=== PATIENT | female | born 1965 | race Two or more races ===

== ENCOUNTER 2016-07-03 16:23 | Emergency (ER) | payer MEDICAID, OTHER ==
[~2016-07-03] VITALS: Ht 144.8 cm; Wt 62.4 kg
[2016-07-03 16:37] VITALS: BP 119/81
[2016-07-03] MEDS ORDERED: LISI-283 PO (18:52)
[2016-07-03] MEDS ORDERED: CALC667C PO (18:53)
[2016-07-03] MEDS ORDERED: ATOR10TA52 PO (18:53)
[2016-07-03] MEDS ORDERED: METF-314 PO (18:55)
[2016-07-03] MEDS ORDERED: SITA100T7 PO (18:55)
[2016-07-03] MEDS ORDERED: IBUP600T27 PO (18:55)
[2016-07-03] MEDS ORDERED: ASPI81TA27 PO (18:55)
[2016-07-03] MEDS ORDERED: KETOROLAC TROMETH 60MG/2ML VIAL IM ONE (19:45)
[2016-07-03] MEDS ORDERED: ONDANSETRON ODT 4 MG TAB PO ONE (19:45)
== END 2016-07-03 20:46 | disposition home or self-care (01) ==
LOC: ER 16:30
DX: E86.0 Dehydration (principal); G43.909 Migraine, unspecified, not intractable, without status migrainosus; E11.65 Type 2 diabetes mellitus with hyperglycemia; R81 Glycosuria; R11.2 Nausea with vomiting, unspecified; Z91.14 Patient's other noncompliance with medication regimen
CPT/HCPCS: 96372; 99283; J1885; Q0162

== ENCOUNTER 2020-10-22 13:45 | Inpatient (IN) | payer MEDICAID ==
[~2020-10-22] VITALS: Ht 144.8 cm; Wt 718.5 kg
[~2020-10-22 13:45] MED LIST: ASPI-543 PO; ATOR10TA52 PO; CALC667C PO; IBUP600T27 PO; LISI-283 PO; METF-371 PO; SITA100T7 PO
[2020-10-22 14:39] LABS: Basophils # (auto) 0 10 ^3/uL (0-0.2); Basophils % (auto) 0.5 % (0.0-2.0); Eosinophils # (auto) 0.2 10 ^3/uL (0-0.8); Eosinophils % (auto) 1.9 % (0.0-7.0); Hematocrit 45.8 % (36.0-46.0); Hemoglobin 15.2 g/dL (12.2-16.2); Lymphocytes # (auto) 2.6 10 ^3/uL (0.4-5.4); Lymphocytes % (auto) 33.2 % (10.0-50.0); Mean Corpuscular Hgb Conc. 33.2 g/dL (32.0-36.0); Mean Corpuscular Volume 84.2 fL (80.0-100.0); Monocytes # (auto) 0.5 10 ^3/uL (0-1.3); Monocytes % (auto) 6.2 % (0.0-12.0); Neutrophils # (auto) 4.6 10 ^3/uL (1.6-8.6); Neutrophils % (auto) 58.2 % (37.0-80.0); Nucleated Red Blood Cells % 0.1 %; Platelet Count (auto) 265 10^3/uL (140-450); Red Blood Cells 5.43 10^6/uL (4.0-5.20); Red Cell Distribution Width 14.4 % (11.8-14.3); White Blood Cell 7.9 10^3/uL (4.4-10.8)
[2020-10-22 14:55] LABS: Albumin 3.8 g/dL (3.4-5.0); Anion Gap 7 (5-15); Blood Urea Nitrogen 11 mg/dL (7-18); Calcium 9.5 mg/dL (8.5-10.1); Carbon Dioxide 27 mmol/L (21-32); Chloride 102 mmol/L (98-107); Glucose 359 mg/dL (74-106); Potassium 3.9 mmol/L (3.5-5.1); Sodium 136 mmol/L (136-145)
[2020-10-22 15:00] LABS: Alanine Aminotransferase 22 U/L (13-56); Alkaline Phosphatase 176 U/L (45-117); Aspartate Aminotransferase 16 U/L (15-37); BUN/Creatinine Ratio 17.5; Bilirubin, Total 0.5 mg/dL (0.2-1.0); GFR African American 125 mL/min; GFR Non-African American 104 mL/min; Total Protein 8.5 g/dL (6.4-8.2)
[2020-10-22 15:26] LABS: Urine Bacteria NONE SEEN /hpf (None Seen); Urine Blood Negative /uL (Negative); Urine Mucus FEW (None Seen); Urine Specific Gravity 1.031 (1.001-1.035); Urine WBC 257 /hpf (0 - 5); Urine WBC Clumps PRESENT /hpf (None Seen)
[2020-10-22] MEDS ORDERED: cefTRIAXone 1GM/50ML D5W 50 ML IV ONE (16:45)
[2020-10-22] MEDS ORDERED: METOPROLOL TARTRATE 1MG/1ML-5ML VIAL IV ONE ×2 (17:56→18:00)
[2020-10-22] MEDS ORDERED: IOHEXOL 350 MG/ML 100ML IJ ONE (18:07)
[2020-10-22] MEDS ORDERED: LORazepam 0.5 MG TAB PO PRN (20:00)
[2020-10-22] MEDS ORDERED: MORPHINE SULF INJ 2 MG/ML SYRINGE 1ML IV PRN ×2 (20:00)
[2020-10-22] MEDS ORDERED: ONDANSETRON HCL 4 MG/2 ML VIAL IV PRN (20:00)
[2020-10-22] MEDS ORDERED: ACETAMINOPHEN 500 MG TAB PO PRN (20:00)
[2020-10-22] MEDS ORDERED: NITROGLYCERIN 0.4 MG SL TAB SL PRN (20:00)
[2020-10-22] MEDS ORDERED: LABETALOL HCL 5 MG/ML 4ML SYRINGE IV PRN (20:00)
[2020-10-22] MEDS ORDERED: SODIUM CHLORIDE 0.9% 2,000 ML IV ONE (20:00)
[2020-10-22] MEDS ORDERED: LABETALOL HCL 5 MG/ML 4ML SYRINGE IV ONE (20:00)
[2020-10-22] MEDS ORDERED: DEXTROSE (50%) 50ML SYRG IV PRN (20:00)
[2020-10-22] MEDS ORDERED: DOCUSATE CALCIUM 240 MG CAP PO PRN (20:00)
[2020-10-22] MEDS: InsuLIN REG 1unit/0.01ml Soln (100units/ml) SC SCH ×2 (20:20→23:36)
[2020-10-22] MEDS: ACCU-CHEK COMFORT CURVE STRIP VI SCH ×2 (20:21→23:36)
[2020-10-22] MEDS ORDERED: dilTIAZem 25 MG/5 ML VIAL IV ONE (21:00)
[2020-10-22] MEDS ORDERED: INSULIN LANTUS (GLARGINE) 1 /0.01ml (100units/ml) SC SCH (22:00)
[2020-10-22] MEDS: SODIUM CHLORIDE 0.9% 1,000 ML IV SCH (23:36)
[2020-10-23 01:35] VITALS: BP 97/65
[2020-10-23] MEDS: ACCU-CHEK COMFORT CURVE STRIP VI SCH ×3 (03:44→12:23)
[2020-10-23] MEDS: InsuLIN REG 1unit/0.01ml Soln (100units/ml) SC SCH ×3 (03:44→12:23)
[2020-10-23 05:00] VITALS: BP 105/57
[2020-10-23] MEDS: SODIUM CHLORIDE 0.9% 1,000 ML IV SCH (05:52)
[2020-10-23 06:01] LABS: Basophils # (auto) 0 10 ^3/uL (0-0.2); Basophils % (auto) 0.4 % (0.0-2.0); Eosinophils # (auto) 0.1 10 ^3/uL (0-0.8); Hematocrit 39.2 % (36.0-46.0); Hemoglobin 13.5 g/dL (12.2-16.2); Lymphocytes # (auto) 2.4 10 ^3/uL (0.4-5.4); Lymphocytes % (auto) 26.4 % (10.0-50.0); Mean Corpuscular Hemoglobin 28.7 pg (28.0-32.0); Mean Corpuscular Hgb Conc. 34.5 g/dL (32.0-36.0); Mean Corpuscular Volume 83.3 fL (80.0-100.0); Monocytes # (auto) 0.6 10 ^3/uL (0-1.3); Monocytes % (auto) 6.2 % (0.0-12.0); Neutrophils # (auto) 6.1 10 ^3/uL (1.6-8.6); Platelet Count (auto) 226 10^3/uL (140-450); Red Blood Cells 4.71 10^6/uL (4.0-5.20); Red Cell Distribution Width 14.2 % (11.8-14.3); White Blood Cell 9.3 10^3/uL (4.4-10.8)
[2020-10-23 06:22] LABS: Potassium 3.5 mmol/L (3.5-5.1)
[2020-10-23 06:34] LABS: BUN/Creatinine Ratio 24.5; Bilirubin, Total 0.5 mg/dL (0.2-1.0); Calcium 8.4 mg/dL (8.5-10.1); Total Protein 6.7 g/dL (6.4-8.2)
[2020-10-23 08:15] VITALS: BP 129/72
[2020-10-23 09:20] VITALS: BP 129/72
[2020-10-23] MEDS ORDERED: PANTOPRAZOLE 40 MG TAB PO SCH (10:00)
[2020-10-23] MEDS ORDERED: ENOXAPARIN SOD 40 MG/0.4 ML SYRINGE SC SCH (10:00)
[2020-10-23 12:18] VITALS: BP 156/97
[2020-10-23 12:52] VITALS: BP 156/97
[2020-10-23] MEDS ORDERED: cefTRIAXone 1GM/50ML D5W 50 ML IV SCH (21:00)
== END 2020-10-23 13:35 | disposition home or self-care (01) | DRG 82 ==
LOC: ER 13:45 → TELE 19:48 → TELE-CENTR 22:07
PROVIDERS: ADMIT Family Medicine; ATTEND Internal Medicine
DX: S05.12XA Contusion of eyeball and orbital tissues, left eye, initial encounter (principal); E11.65 Type 2 diabetes mellitus with hyperglycemia; E44.1 Mild protein-calorie malnutrition; G45.9 Transient cerebral ischemic attack, unspecified; H54.3 Unqualified visual loss, both eyes; N39.0 Urinary tract infection, site not specified; Z20.822 Contact with and (suspected) exposure to COVID-19; I10 Essential (primary) hypertension; E78.5 Hyperlipidemia, unspecified; R00.0 Tachycardia, unspecified; Z90.49 Acquired absence of other specified parts of digestive tract; Z79.4 Long term (current) use of insulin; Z56.82 Military deployment status; W22.10XA Striking against or struck by unspecified automobile airbag, initial encounter; Y93.89 Activity, other specified; Y92.89 Other specified places as the place of occurrence of the external cause; Y99.8 Other external cause status
CPT/HCPCS: 36415; 70450; 71045; 71275; 80053; 81001; 82962; 83036; 83880; 84443; 84484; 85025; 87086; 87088; 87186; 87426; 93005; 96365; 96366; 96375; G0378; J0696; J1815; J3490

== ENCOUNTER 2021-11-30 19:49 | Emergency (ER) | payer MEDICAID ==
[~2021-11-30] VITALS: Ht 144.8 cm; Wt 72.6 kg
[2021-11-30] MEDS ORDERED: diphenhdrAMINE HCL 50 MG/1 ML VL IM ONE (20:15)
[2021-11-30] MEDS ORDERED: METOCLOPRAMIDE HCL 5MG/ml INJ 2ml VIAL IM ONE (20:15)
[2021-11-30] MEDS ORDERED: KETOROLAC TROMETH 60MG/2ML VIAL IM ONE (20:15)
[2021-11-30 23:00] VITALS: BP 126/82
== END 2021-11-30 23:41 | disposition home or self-care (01) ==
LOC: ER 19:49
DX: G43.909 Migraine, unspecified, not intractable, without status migrainosus (principal); E11.9 Type 2 diabetes mellitus without complications; E78.5 Hyperlipidemia, unspecified; I10 Essential (primary) hypertension
CPT/HCPCS: 96372; 99284; J1200; J1885; J2765

== ENCOUNTER 2023-06-07 15:34 | Inpatient (IN) | payer MEDICAID ==
[~2023-06-07] VITALS: Ht 144.8 cm; Wt 86.1 kg
[~2023-06-07 15:34] MED LIST changes: +IBUP-1454 PO; -IBUP600T27 PO
[2023-06-07 18:44] LABS: Basophils # (auto) 0 10 ^3/uL (0-0.2); Basophils % (auto) 0.2 % (0.0-2.0); Eosinophils # (auto) 0 10 ^3/uL (0-0.8); Eosinophils % (auto) 0.3 % (0.0-7.0); Hemoglobin 14.7 g/dL (12.2-16.2); Lymphocytes # (auto) 1.4 10 ^3/uL (0.4-5.4); Lymphocytes % (auto) 11.8 % (10.0-50.0); Mean Corpuscular Hemoglobin 27.3 pg (28.0-32.0); Mean Corpuscular Hgb Conc. 33.3 g/dL (32.0-36.0); Mean Corpuscular Volume 81.9 fL (80.0-100.0); Monocytes # (auto) 0.2 10 ^3/uL (0-1.3); Neutrophils # (auto) 10.4 10 ^3/uL (1.6-8.6); Neutrophils % (auto) 85.7 % (37.0-80.0); Red Blood Cells 5.38 10^6/uL (4.0-5.20); Red Cell Distribution Width 14.3 % (11.8-14.3); White Blood Cell 12.1 10^3/uL (4.4-10.8)
[2023-06-07 19:02] LABS: Alanine Aminotransferase 18 U/L (7-40); Albumin 4.3 g/dL (3.2-4.8); Alkaline Phosphatase 142 U/L (46-116); Anion Gap 7 (5-15); Aspartate Aminotransferase 13 U/L (13-40); BUN/Creatinine Ratio 27.4 (10.0-20.0); Bilirubin, Total 0.7 mg/dL (0.2-1.0); Blood Urea Nitrogen 23 mg/dL (9-23); Calcium 9.6 mg/dL (8.7-10.4); Carbon Dioxide 26 mmol/L (20-30); Chloride 102 mmol/L (98-107); Glucose 247 mg/dL (74-106); Magnesium 2.1 mg/dL (1.6-2.6); Potassium 4.5 mmol/L (3.5-5.1); Sodium 135 mmol/L (136-145); Total Protein 7.6 g/dL (5.7-8.2)
[2023-06-07] MEDS ORDERED: cefTRIAXone 1GM/50ML D5W 50 ML IV ONE (19:30)
[2023-06-07] MEDS ORDERED: SODIUM CHLORIDE 0.9% 1,000 ML IV ONE (19:30)
[2023-06-07] MEDS ORDERED: DEXTROSE (50%) 50ML SYRG IV PRN (21:00)
[2023-06-07] MEDS ORDERED: hydrALAZINE HCL 20 MG/ML VL IV PRN (21:00)
[2023-06-07] MEDS ORDERED: ACETAMINOPHEN 325 MG TAB PO PRN (21:00)
[2023-06-07] MEDS ORDERED: ONDANSETRON HCL 4 MG/2 ML VIAL IV PRN (21:00)
[2023-06-07 22:12] LABS: Rapid Influenza A Negative (Negative)
[2023-06-07 22:13] LABS: COVID19 ANTIGEN SOFIA FIA NEGATIVE (NEGATIVE); Rapid Influenza B Negative (Negative)
[2023-06-07 23:05] VITALS: PULSE 101; RESP 20; O2SAT 97
[2023-06-08] VITALS (8 sets, daily range): BP systolic 105–157; BP diastolic 59–86; PULSE 91–98; RESP 17–20; TEMP 97.5–98.6; O2SAT 93–98
[2023-06-08] MEDS: ACCU-CHEK COMFORT CURVE STRIP VI SCH ×5 (00:22→23:56)
[2023-06-08] MEDS: InsuLIN REG 1unit/0.01ml Soln (100units/ml) SC SCH ×5 (00:47→23:59)
[2023-06-08 06:17] LABS: Anion Gap 7 (5-15); Carbon Dioxide 22 mmol/L (20-30); Chloride 107 mmol/L (98-107); Potassium 3.6 mmol/L (3.5-5.1); Sodium 136 mmol/L (136-145)
[2023-06-08 06:19] LABS: Basophils # (auto) 0 10 ^3/uL (0-0.2); Basophils % (auto) 0.3 % (0.0-2.0); Eosinophils # (auto) 0.1 10 ^3/uL (0-0.8); Eosinophils % (auto) 0.8 % (0.0-7.0); Hematocrit 40.9 % (36.0-46.0); Hemoglobin 13.5 g/dL (12.2-16.2); Lymphocytes # (auto) 1.8 10 ^3/uL (0.4-5.4); Lymphocytes % (auto) 19.3 % (10.0-50.0); Mean Corpuscular Hemoglobin 27.7 pg (28.0-32.0); Mean Corpuscular Hgb Conc. 33.1 g/dL (32.0-36.0); Mean Corpuscular Volume 83.8 fL (80.0-100.0); Monocytes # (auto) 0.6 10 ^3/uL (0-1.3); Monocytes % (auto) 6.4 % (0.0-12.0); Neutrophils % (auto) 73.2 % (37.0-80.0); Nucleated Red Blood Cells % 0.1 %; Red Blood Cells 4.88 10^6/uL (4.0-5.20); Red Cell Distribution Width 14.4 % (11.8-14.3); White Blood Cell 9.5 10^3/uL (4.4-10.8)
[2023-06-08 06:23] LABS: BUN/Creatinine Ratio 16.9 (10.0-20.0); Blood Urea Nitrogen 14 mg/dL (9-23); Glucose 177 mg/dL (74-106)
[2023-06-08] MEDS: LISINOPRIL 10 MG TAB PO SCH (10:50)
[2023-06-09 05:00] VITALS: BP 129/69; PULSE 62; RESP 18; TEMP 98; O2SAT 97
[2023-06-09] MEDS: ACCU-CHEK COMFORT CURVE STRIP VI SCH ×2 (06:45→11:46)
[2023-06-09] MEDS: InsuLIN REG 1unit/0.01ml Soln (100units/ml) SC SCH ×2 (06:46→11:51)
[2023-06-09 08:00] VITALS: BP 151/70; PULSE 85; RESP 17; TEMP 98; O2SAT 96
[2023-06-09 08:05] VITALS: BP 151/70; PULSE 85; RESP 17; TEMP 98; O2SAT 96
[2023-06-09] MEDS: LISINOPRIL 10 MG TAB PO SCH (09:55)
[2023-06-09] MEDS ORDERED: METF-929 PO (11:12)
[2023-06-09] MEDS ORDERED: SITA100T7 PO (11:12)
== END 2023-06-09 15:17 | disposition home or self-care (01) | DRG 420 ==
LOC: ER 15:34 → OVERFLOW 21:00 → WEST WING 06-08 10:06
PROVIDERS: ADMIT Nurse Practitioner; ATTEND Internal Medicine Geriatric Medicine
DX: E11.65 Type 2 diabetes mellitus with hyperglycemia (principal); E78.5 Hyperlipidemia, unspecified; H54.8 Legal blindness, as defined in USA; I10 Essential (primary) hypertension; Z20.822 Contact with and (suspected) exposure to COVID-19
CPT/HCPCS: 36415; 70450; 71045; 80048; 80053; 82140; 82962; 83036; 83605; 83735; 84484; 85025; 87040; 87426; 87804; 93005; G0378; J1815

== ENCOUNTER 2024-03-25 09:53 | Inpatient (IN) | payer MEDICAID ==
[~2024-03-25] VITALS: Ht 144.8 cm; Wt 69.5 kg
[~2024-03-25 09:53] MED LIST changes: -IBUP-1454 PO; +METF-929 PO
[2024-03-25] MEDS: SODIUM CHLORIDE 0.9% 1,000 ML IV ONE ×2 (10:35→10:36)
[2024-03-25] MEDS: ONDANSETRON HCL 4 MG/2 ML VIAL IV ONE (10:36)
[2024-03-25 10:41] VITALS: PULSE 99; RESP 18; O2SAT 94
[2024-03-25 11:16] LABS: Basophils # (auto) 0.1 10 ^3/uL (0-0.2); Basophils % (auto) 0.4 % (0.0-2.0); Eosinophils # (auto) 0 10 ^3/uL (0-0.8); Eosinophils % (auto) 0.1 % (0.0-7.0); Hematocrit 34.1 % (36.0-46.0); Hemoglobin 11.1 g/dL (12.2-16.2); Lymphocytes % (auto) 5.3 % (10.0-50.0); Mean Corpuscular Hgb Conc. 32.5 g/dL (32.0-36.0); Mean Corpuscular Volume 85.9 fL (80.0-100.0); Monocytes # (auto) 0.3 10 ^3/uL (0-1.3); Monocytes % (auto) 1.6 % (0.0-12.0); Neutrophils # (auto) 17.1 10 ^3/uL (1.6-8.6); Neutrophils % (auto) 92.6 % (37.0-80.0); Platelet Count (auto) 344 10^3/uL (140-450); Red Blood Cells 3.97 10^6/uL (4.0-5.20); Red Cell Distribution Width 15.4 % (11.8-14.3); White Blood Cell 18.5 10^3/uL (4.4-10.8)
[2024-03-25 11:39] LABS: Alkaline Phosphatase 146 U/L (46-116); Anion Gap 12 (5-15); Aspartate Aminotransferase 12 U/L (13-40); BUN/Creatinine Ratio 10.2 (10.0-20.0); Blood Urea Nitrogen 44 mg/dL (9-23); Calcium 10.1 mg/dL (8.7-10.4); Carbon Dioxide 22 mmol/L (20-31); Chloride 105 mmol/L (98-107); Glucose 230 mg/dL (74-106); Potassium 4.4 mmol/L (3.5-5.1); Sodium 139 mmol/L (136-145)
[2024-03-25 11:40] LABS: Albumin 4.3 g/dL (3.2-4.8); Bilirubin, Total 0.3 mg/dL (0.2-1.0); Total Protein 7.8 g/dL (5.7-8.2)
[2024-03-25 11:44] LABS: Alanine Aminotransferase 9 U/L (7-40)
[2024-03-25] MEDS ORDERED: DEXTROSE (50%) 50ML SYRG IV PRN (15:45)
[2024-03-25] MEDS: SODIUM CHLORIDE 0.9% 1,000 ML IV SCH (15:45)
[2024-03-25] MEDS ORDERED: DOCUSATE SOD 100 MG CAP PO PRN (15:45)
[2024-03-25] MEDS ORDERED: NITROGLYCERIN 0.4 MG SL TAB SL PRN (16:00)
[2024-03-25] MEDS ORDERED: MORPHINE SULFATE INJ 2 MG/ml SYRG IV PRN (16:00)
[2024-03-25] MEDS: amLODIPine BESYLATE 5 MG TAB PO ONE (16:24)
[2024-03-25 16:38] LABS: Urine Bacteria MANY /hpf (None Seen); Urine Blood TRACE /uL (Negative); Urine Clarity Turbid (Clear); Urine Color Colorless (Yellow); Urine Protein, UAD 1+ (Negative); Urine Specific Gravity 1.011 (1.001-1.035); Urine Urobilinogen Normal (Negative); Urine WBC 87 /hpf (0 - 5); Urine pH 6.5 (5.0-9.0)
[2024-03-26 00:55] VITALS: PULSE 112; RESP 15; O2SAT 95
[2024-03-26] MEDS: ACCU-CHEK COMFORT CURVE STRIP VI SCH (00:59)
[2024-03-26] MEDS: METOPROLOL TARTRATE 25 MG TAB PO SCH (01:01)
[2024-03-26] MEDS: InsuLIN REG 1unit/0.01ml Soln (100units/ml) SC SCH (01:07)
[2024-03-26] MEDS: cefTRIAXone 1GM/50ML D5W 50 ML IV ONE (01:10)
[2024-03-26] MEDS: ATORVASTATIN 20 MG TAB PO SCH (01:11)
[2024-03-26] MEDS: ONDANSETRON HCL 4 MG/2 ML VIAL IV PRN (01:17)
[2024-03-26 03:38] LABS: Albumin 4.6 g/dL (3.2-4.8); Alkaline Phosphatase 143 U/L (46-116); Anion Gap 10 (5-15); Aspartate Aminotransferase 10 U/L (13-40); BUN/Creatinine Ratio 8.6 (10.0-20.0); Bilirubin, Total 0.2 mg/dL (0.2-1.0); Calcium 10.6 mg/dL (8.7-10.4); Carbon Dioxide 23 mmol/L (20-31); Chloride 108 mmol/L (98-107); Glucose 283 mg/dL (74-106); Potassium 4.4 mmol/L (3.5-5.1); Sodium 141 mmol/L (136-145)
[2024-03-26 03:39] LABS: Total Protein 8.4 g/dL (5.7-8.2)
[2024-03-26 03:40] LABS: Basophils # (auto) 0 10 ^3/uL (0-0.2); Basophils % (auto) 0.1 % (0.0-2.0); Eosinophils # (auto) 0 10 ^3/uL (0-0.8); Hematocrit 34.1 % (36.0-46.0); Hemoglobin 11.6 g/dL (12.2-16.2); Lymphocytes # (auto) 0.5 10 ^3/uL (0.4-5.4); Lymphocytes % (auto) 2.9 % (10.0-50.0); Mean Corpuscular Hgb Conc. 34.1 g/dL (32.0-36.0); Monocytes # (auto) 0.5 10 ^3/uL (0-1.3); Monocytes % (auto) 2.6 % (0.0-12.0); Neutrophils # (auto) 16.9 10 ^3/uL (1.6-8.6); Neutrophils % (auto) 94.4 % (37.0-80.0); Platelet Count (auto) 329 10^3/uL (140-450); Red Cell Distribution Width 14.9 % (11.8-14.3); White Blood Cell 17.9 10^3/uL (4.4-10.8)
[2024-03-26 03:46] LABS: Alanine Aminotransferase 9 U/L (7-40); Blood Urea Nitrogen 32 mg/dL (9-23)
[2024-03-26] MEDS: cloNIDine HCL 0.1 MG TAB PO PRN (06:01)
[2024-03-26] MEDS: cefTRIAXone 1GM/50ML D5W 50 ML IV SCH (08:48)
[2024-03-26] MEDS ORDERED: amLODIPine BESYLATE 5 MG TAB PO SCH (10:00)
[2024-03-26] MEDS: amLODIPine BESYLATE 5 MG TAB PO SCH (10:46)
[2024-03-26] MEDS: ASPirin 81 mg TAB PO SCH (10:47)
[2024-03-26] MEDS ORDERED: ATOR-47 PO (14:39)
[2024-03-26] MEDS ORDERED: METF-370 PO (14:39)
[2024-03-26 17:56] VITALS: BP 135/81; PULSE 99; RESP 18; TEMP 98.7; O2SAT 95
[2024-03-26 20:00] VITALS: PULSE 67; PULSE 81; RESP 17; O2SAT 93
[2024-03-26] MEDS: SODIUM CHLORIDE 0.9% 1,000 ML IV SCH (20:15)
[2024-03-26 21:00] VITALS: BP 138/69; PULSE 67; RESP 17; TEMP 97.3; O2SAT 93
[2024-03-27] VITALS (9 sets, daily range): BP systolic 122–151; BP diastolic 66–80; PULSE 69–88; RESP 17–20; TEMP 97.7–99.1; O2SAT 90–96
[2024-03-27] MEDS: metroNIDAZOLE 500MG/100ML 100 ML IV SCH (00:41)
[2024-03-27] MEDS: InsuLIN REG 1unit/0.01ml Soln (100units/ml) SC SCH ×3 (00:53→21:23)
[2024-03-27 05:59] LABS: Hemoglobin 11.5 g/dL (12.2-16.2); Mean Corpuscular Hemoglobin 28.3 pg (28.0-32.0); Mean Corpuscular Hgb Conc. 33.7 g/dL (32.0-36.0); Mean Corpuscular Volume 84.1 fL (80.0-100.0); Platelet Count (auto) 323 10^3/uL (140-450); Red Blood Cells 4.05 10^6/uL (4.0-5.20)
[2024-03-27 06:02] LABS: Band Neutrophils % (manual) 0; Basophils % (manual) 0 (0.0-2.0); Blast Cells 0; Eosinophils % (manual) 0 (0-7); Metamyelocytes % 0; Myelocytes % 0; Promyelocytes % 0; Reactive Lymphocytes 0
[2024-03-27 06:11] LABS: Chloride 103 mmol/L (98-107); Potassium 3.9 mmol/L (3.5-5.1); Sodium 139 mmol/L (136-145)
[2024-03-27 06:12] LABS: Anion Gap 11 (5-15); Calcium 10.7 mg/dL (8.7-10.4); Carbon Dioxide 25 mmol/L (20-31)
[2024-03-27 06:17] LABS: BUN/Creatinine Ratio 14.8 (10.0-20.0); Glucose 244 mg/dL (74-106)
[2024-03-27 06:28] LABS: Blood Urea Nitrogen 47 mg/dL (9-23)
[2024-03-27] MEDS ORDERED: METOCLOPRAMIDE HCL 5MG/ml INJ 2ml VIAL IV ONE (07:15)
[2024-03-27] MEDS ORDERED: METOCLOPRAMIDE HCL 5MG/ml INJ 2ml VIAL IV PRN ×2 (07:15→16:00)
[2024-03-27 08:22] LABS: Lymphocytes % (manual) 2 (10.0-50.0); Monocytes % (manual) 5 (0-12)
[2024-03-27 08:23] LABS: Platelet Estimate Adequate
[2024-03-27] MEDS ORDERED: DEXTROSE (50%) 50ML SYRG IV PRN (09:00)
[2024-03-27] MEDS: MAGNESIUM SULFATE 1GM/100ML 100 ML IV ONE (11:45)
[2024-03-27] MEDS: METOCLOPRAMIDE HCL 5MG/ml INJ 2ml VIAL IV ONE (11:47)
[2024-03-27] MEDS: PROCHLORPERAZINE EDISYLATE 5 MG/ML 2ML VIAL IV ONE (11:48)
[2024-03-27] MEDS: ACCU-CHEK COMFORT CURVE STRIP VI SCH (11:59)
[2024-03-27] MEDS ORDERED: CLOP75TA28 PO (13:51)
[2024-03-27] MEDS ORDERED: DILT-29 PO (13:51)
[2024-03-27] MEDS: ONDANSETRON HCL 4 MG/2 ML VIAL IV PRN (16:26)
[2024-03-27] MEDS: INSULIN LANTUS (GLARGINE) 1 /0.01ml (100units/ml) SC ONE (16:34)
[2024-03-27] MEDS ORDERED: PANTOPRAZOLE 40 MG/10 ML VIAL INJ IV ONE (17:00)
[2024-03-27] MEDS: AZITHROMYCIN 500MG/ 250ML 250 ML IV ONE (18:38)
[2024-03-27] MEDS: PANTOPRAZOLE 40 MG/10 ML VIAL INJ IV SCH (21:22)
[2024-03-28] VITALS (9 sets, daily range): BP systolic 105–148; BP diastolic 55–82; PULSE 75–95; RESP 18–20; TEMP 98.2–98.5; O2SAT 92–98
[2024-03-28 06:09] LABS: Basophils # (auto) 0.1 10 ^3/uL (0-0.2); Basophils % (auto) 0.3 % (0.0-2.0); Eosinophils # (auto) 0.1 10 ^3/uL (0-0.8); Eosinophils % (auto) 0.7 % (0.0-7.0); Hematocrit 32.6 % (36.0-46.0); Hemoglobin 11.1 g/dL (12.2-16.2); Lymphocytes # (auto) 2.4 10 ^3/uL (0.4-5.4); Lymphocytes % (auto) 11.5 % (10.0-50.0); Mean Corpuscular Hemoglobin 28.5 pg (28.0-32.0); Mean Corpuscular Hgb Conc. 33.9 g/dL (32.0-36.0); Mean Corpuscular Volume 84.1 fL (80.0-100.0); Monocytes # (auto) 0.7 10 ^3/uL (0-1.3); Monocytes % (auto) 3.6 % (0.0-12.0); Neutrophils # (auto) 17.5 10 ^3/uL (1.6-8.6); Neutrophils % (auto) 83.9 % (37.0-80.0); Platelet Count (auto) 269 10^3/uL (140-450); Red Blood Cells 3.87 10^6/uL (4.0-5.20); Red Cell Distribution Width 15.1 % (11.8-14.3); White Blood Cell 20.9 10^3/uL (4.4-10.8)
[2024-03-28 06:16] LABS: Anion Gap 10 (5-15); Carbon Dioxide 22 mmol/L (20-31); Chloride 107 mmol/L (98-107); Sodium 139 mmol/L (136-145)
[2024-03-28 06:18] LABS: Calcium 10.3 mg/dL (8.7-10.4)
[2024-03-28 06:22] LABS: Glucose 177 mg/dL (74-106)
[2024-03-28 06:23] LABS: BUN/Creatinine Ratio 12.4 (10.0-20.0)
[2024-03-28 06:43] LABS: Blood Urea Nitrogen 29 mg/dL (9-23)
[2024-03-28] MEDS: amLODIPine BESYLATE 5 MG TAB PO SCH (08:45)
[2024-03-28] MEDS: AZITHROMYCIN 500MG/ 250ML 250 ML IV SCH (08:54)
[2024-03-28] MEDS: INSULIN LANTUS (GLARGINE) 1 /0.01ml (100units/ml) SC SCH (09:11)
[2024-03-28] MEDS: levoFLOXacin 750MG 150 ML IV SCH (13:32)
[2024-03-28] MEDS: POTASSIUM CHLORIDE 60 MEQ, LIDOCAINE 1% (LOCAL ANESTH.) 6 ML in SODIUM CHL 0.9% 500 ML IV ONE (15:26)
[2024-03-28] MEDS: MELATONIN 5 MG TAB PO ONE (21:52)
[2024-03-29] VITALS (9 sets, daily range): BP systolic 140–158; BP diastolic 63–95; PULSE 82–94; RESP 16–20; TEMP 97.7–99.3; O2SAT 92–100
[2024-03-29] MEDS: HYDROcodone-ACET 5/325MG TAB PO PRN (01:01)
[2024-03-29 07:23] LABS: Anion Gap 10 (5-15); Carbon Dioxide 22 mmol/L (20-31); Chloride 109 mmol/L (98-107); Potassium 3.4 mmol/L (3.5-5.1); Sodium 141 mmol/L (136-145)
[2024-03-29 07:25] LABS: Basophils # (auto) 0 10 ^3/uL (0-0.2); Basophils % (auto) 0.3 % (0.0-2.0); Calcium 9.7 mg/dL (8.7-10.4); Eosinophils # (auto) 0.1 10 ^3/uL (0-0.8); Hematocrit 28.8 % (36.0-46.0); Hemoglobin 10.1 g/dL (12.2-16.2); Lymphocytes # (auto) 1.7 10 ^3/uL (0.4-5.4); Lymphocytes % (auto) 11.8 % (10.0-50.0); Mean Corpuscular Hemoglobin 29.3 pg (28.0-32.0); Mean Corpuscular Hgb Conc. 35.1 g/dL (32.0-36.0); Mean Corpuscular Volume 83.4 fL (80.0-100.0); Monocytes # (auto) 0.6 10 ^3/uL (0-1.3); Monocytes % (auto) 4.4 % (0.0-12.0); Neutrophils % (auto) 82.5 % (37.0-80.0); Platelet Count (auto) 240 10^3/uL (140-450); Red Blood Cells 3.46 10^6/uL (4.0-5.20); Red Cell Distribution Width 14.8 % (11.8-14.3); White Blood Cell 14.6 10^3/uL (4.4-10.8)
[2024-03-29 07:29] LABS: Blood Urea Nitrogen 20 mg/dL (9-23); Glucose 159 mg/dL (74-106)
[2024-03-29] MEDS ORDERED: LIDOCAINE VISCOUS 2% 15ML UD ONE (08:29)
[2024-03-29] MEDS ORDERED: FLUMAZENIL 0.1 MG/ML INJ 10ML MDV IV ONE (08:29)
[2024-03-29] MEDS ORDERED: SODIUM CHLORIDE LOCK 0 ML ONE (08:29)
[2024-03-29] MEDS ORDERED: MIDAZOLAM HCL 5 MG/ML-1ML VIAL ONE (08:29)
[2024-03-29] MEDS ORDERED: NALOXONE HCL 0.4 MG/ML VIAL ONE (08:29)
[2024-03-29] MEDS ORDERED: fentaNYL CITRATE 100 MCG/2 ML VL ONE ×2 (08:30→14:10)
[2024-03-29] MEDS ORDERED: diphenhdrAMINE HCL 50 MG/1 ML VL ONE (08:30)
[2024-03-29] MEDS ORDERED: MIDAZOLAM HCL 2MG/2ML 2ml VIAL (1mg/ml) ONE (14:10)
[2024-03-29] MEDS: POTASSIUM EFFERVESENT TAB 25 MEQ PO ONE (16:33)
[2024-03-29] MEDS: ONDANSETRON HCL 4 MG/2 ML VIAL IV ONE (16:33)
[2024-03-29] MEDS: SUCRALFATE 1 GM/10 ML ORAL SUSP GT SCH (16:34)
[2024-03-29] MEDS: ACETAMINOPHEN 325 MG TAB PO PRN (23:08)
[2024-03-30 01:00] VITALS: BP 141/70; PULSE 87; RESP 18; TEMP 98.7; O2SAT 94
[2024-03-30 05:00] VITALS: BP 160/84; PULSE 76; RESP 16; TEMP 97.8; O2SAT 98
[2024-03-30 07:04] LABS: Basophils # (auto) 0.1 10 ^3/uL (0-0.2); Basophils % (auto) 0.5 % (0.0-2.0); Eosinophils # (auto) 0.3 10 ^3/uL (0-0.8); Eosinophils % (auto) 2.3 % (0.0-7.0); Hematocrit 32.1 % (36.0-46.0); Hemoglobin 10.9 g/dL (12.2-16.2); Lymphocytes # (auto) 2.1 10 ^3/uL (0.4-5.4); Lymphocytes % (auto) 15.9 % (10.0-50.0); Mean Corpuscular Hemoglobin 28.2 pg (28.0-32.0); Mean Corpuscular Volume 83.1 fL (80.0-100.0); Monocytes # (auto) 0.4 10 ^3/uL (0-1.3); Monocytes % (auto) 3.1 % (0.0-12.0); Neutrophils # (auto) 10.3 10 ^3/uL (1.6-8.6); Neutrophils % (auto) 78.2 % (37.0-80.0); Nucleated Red Blood Cells % 0.1 %; Platelet Count (auto) 267 10^3/uL (140-450); Red Blood Cells 3.87 10^6/uL (4.0-5.20); Red Cell Distribution Width 15.2 % (11.8-14.3); White Blood Cell 13.2 10^3/uL (4.4-10.8)
[2024-03-30 07:22] LABS: Chloride 109 mmol/L (98-107); Potassium 3.3 mmol/L (3.5-5.1); Sodium 140 mmol/L (136-145)
[2024-03-30 07:23] LABS: Anion Gap 9 (5-15); Calcium 9.6 mg/dL (8.7-10.4); Carbon Dioxide 22 mmol/L (20-31)
[2024-03-30 07:28] LABS: BUN/Creatinine Ratio 11.2 (10.0-20.0); Blood Urea Nitrogen 15 mg/dL (9-23); Glucose 165 mg/dL (74-106)
[2024-03-30 08:37] VITALS: BP 131/48; PULSE 97; RESP 14; TEMP 98.1; O2SAT 96
[2024-03-30] MEDS: POTASSIUM CHL 20 Meq TABLET PO ONE (12:13)
[2024-03-30 12:34] VITALS: BP 147/40; PULSE 80; RESP 12; TEMP 97.4; O2SAT 95
[2024-03-30] MEDS ORDERED: MET25T PO (14:22)
[2024-03-30] MEDS ORDERED: LEVO500T91 PO (14:22)
[2024-03-30] MEDS ORDERED: SUCR1SUS26 GT (14:22)
[2024-03-30] MEDS ORDERED: PANT40TA2 PO (14:22)
[2024-03-30] MEDS ORDERED: AML5T PO (14:22)
[2024-03-30 17:05] VITALS: BP 146/67; PULSE 71; RESP 16; TEMP 98; O2SAT 92
[2024-03-30 17:35] VITALS: BP 147/40; PULSE 80; TEMP 36.7
== END 2024-03-30 18:40 | disposition home health service (06) | DRG 720 ==
LOC: EDBD 09:53 → ER 09:53 → WEST WING 16:00 → TELE 16:00 → TELE-WESTW 03-26 09:31 → WEST WING 03-27 06:34
PROVIDERS: ADMIT Internal Medicine; ATTEND Internal Medicine
PROC: 0DB68ZX Excision of Stomach, Via Natural or Artificial Opening Endoscopic, Diagnostic (ICD-10-PCS; 2024-03-29)
PROC: 0DB58ZX Excision of Esophagus, Via Natural or Artificial Opening Endoscopic, Diagnostic (ICD-10-PCS; 2024-03-29)
PROC: 0DB98ZX Excision of Duodenum, Via Natural or Artificial Opening Endoscopic, Diagnostic (ICD-10-PCS; principal; 2024-03-29 14:05)
DX: A41.81 Sepsis due to Enterococcus (principal); N17.0 Acute kidney failure with tubular necrosis; J15.69 Pneumonia due to other Gram-negative bacteria; K22.11 Ulcer of esophagus with bleeding; K29.71 Gastritis, unspecified, with bleeding; E11.22 Type 2 diabetes mellitus with diabetic chronic kidney disease; J15.9 Unspecified bacterial pneumonia; E86.0 Dehydration; E78.5 Hyperlipidemia, unspecified; H54.8 Legal blindness, as defined in USA; I12.9 Hypertensive chronic kidney disease with stage 1 through stage 4 chronic kidney disease, or unspecified chronic kidney disease; N18.9 Chronic kidney disease, unspecified; I16.0 Hypertensive urgency; N39.0 Urinary tract infection, site not specified; E66.9 Obesity, unspecified; K44.9 Diaphragmatic hernia without obstruction or gangrene; Z90.49 Acquired absence of other specified parts of digestive tract; Z86.73 Personal history of transient ischemic attack (TIA), and cerebral infarction without residual deficits; Z79.4 Long term (current) use of insulin; Z83.3 Family history of diabetes mellitus; Z68.33 Body mass index [BMI] 33.0-33.9, adult
CPT/HCPCS: 36415; 71045; 74176; 76775; 80048; 80053; 81001; 82962; 83036; 83735; 84132; 85007; 85025; 85027; 87040; 87086; 87088; 87186; 92610; 93005; 96361; 96374; 97110; 97116; 97163; 97530; G0378; J1815; J1956; J2003; J2250; J2405; J2470; J3490

== ENCOUNTER 2025-03-10 20:19 | Inpatient (IN) | payer MEDICAID ==
[~2025-03-10] VITALS: Ht 144.8 cm; Wt 72.3 kg
[~2025-03-10 20:19] MED LIST changes: +AML5T PO; -ASPI-543 PO; +ATOR-47 PO; -ATOR10TA52 PO; -CALC667C PO; +DILT-29 PO; +LEVO500T91 PO; -LISI-283 PO; +MET25T PO; -METF-929 PO; +PANT40TA2 PO; -SITA100T7 PO; +SUCR1SUS26 GT
[2025-03-10 21:37] LABS: Hematocrit 30.5 % (36.0-46.0); Hemoglobin 10.3 g/dL (12.2-16.2); Mean Corpuscular Hemoglobin 27.6 pg (28.0-32.0); Mean Corpuscular Volume 81.8 fL (80.0-100.0); Nucleated Red Blood Cells % 0.1 %
[2025-03-10 21:43] LABS: Potassium 4.9 mmol/L (3.5-5.1); Sodium 142 mmol/L (136-145)
[2025-03-10 21:44] LABS: Anion Gap 11 (5-15); Carbon Dioxide 23 mmol/L (20-31)
[2025-03-10 21:45] LABS: Calcium 10.3 mg/dL (8.7-10.4); Chloride 108 mmol/L (98-107)
[2025-03-10 21:49] LABS: BUN/Creatinine Ratio 13.5 (10.0-20.0)
[2025-03-10 21:50] LABS: Magnesium 2.3 mg/dL (1.6-2.6)
--- NOTE | 2025-03-10 21:50 | ED.PDOC ---
History of Present Illness HPI Comments 59-year-old female who presents to the ED for elevated potassium Patient states she received call from caregiver who states received call from crystalizer tender stating patient to come to local ED for evaluation due to elevated potassium Patient states she had labs done 1 week prior and states she was also told that she has SHARON Patient otherwise states that she stopped taking her blood thinner 2 weeks prior for unknown reasons Patient otherwise denies any associated symptoms including chest pain shortness of breath nausea vomiting diarrhea fever cough chills Patient has noted blood pressure 149/77 but otherwise stable vitals including heart rate 9 be respiratory rate 18 temperature 98.5 F O2 saturation 97% on room air Past Medical History: DM, High Lipids, HTN, legally blind Past Surgical History: Appendectomy, Hernia Repair Allergies: NKDA Medications: Unknown Social history: Denies tobacco use denies EtOH use denies drug use riley: HPI: Poor Historian. Patient is asymptomatic. REVIEW OF SYSTEMS: CONSTITUTIONAL: Denies acute: fever, diaphoresis, chills, HEAD: Denies acute: headache, photophobia Eyes: Denies acute: Double vision, vision loss, eye pain, eye discharge. EARS: Denies acute: tinnitus, hearing loss, ear discharge, ear pain, THROAT: Denies acute: sore throat, swelling, difficulty swallowing , pain with swallowing, change in voice. NECK: Denies acute: neck pain, neck swelling, stiff neck. HEART: Denies acute : chest pain, palpitations, LUNGS: Denies acute: SOB, wheezing, cough, hemoptysis ABDOMEN: Denies acute: abdominal pain, Nausea, Vomiting, diarrhea, melena , hematemesis, hematochezia SKIN: Denies acute: rash, redness, lesions, itchiness. EXTREMITIES: Denies acute: calf pain, numbness, tingling, weakness, denies pain in extremity. Denies acute: Low back pain. Neuro: Denies acute: focal neurological deficit, motor or sensory focal neurological deficit, tremors, seizure like activity, confusion, dizziness, change in mental status, loss of bowel or bladder function, cauda equina like symptoms. : Denies acute: dysuria, hematuria, flank pain, increase in urinary frequency. PSYCH: Denies acute: hallucination, suicidal ideation, homicidal ideation. FEMALE: Denies acute: abnormal vaginal bleeding, foul odor, unusual discharge. PHYSICAL EXAM: General: ----no---acute distress, awake and alert. Head: normocephalic, atraumatic. Neck: supple, trachea is midline, no swelling. Throat: Normal phonation. Eyes:, no erythema, no purulent discharge, no proptosis, no icterus. Heart: regular rate, regular rhythm, no significant murmur appreciated. Lungs: no apparent respiratory distress, Able to speak in full sentences. No wheezing, no rhonchi, no crackles. No stridors Clear to auscultation bilaterally. Abdomen: non tender to palpation, non distended, soft, no guarding, no rebound, + bowel sounds. Neuro: Awake, Alert, oriented to name, self, situation, follows commands GCS=15. Speech is normal. History of stroke but nonambulatory. Patient has stopped her blood thinners two weeks ago Skin: no petechia, no purpura, no cyanosis, non-pale, not jaundice. Lower extremities: --trace- Pitting edema no deformity, no focal swelling, no calf TTP. Makes eye contact. Patient is nonambulatory. Face: no apparent facial droop. ED COURSE: DISCLAIMER: This medical document was created using an electronic medical record system with voice recognition software and computerized dictation system. Although this document has been carefully reviewed, there might still be some phonetic and typographical errors. Occasional wrong-word or "sound-alike" substitutions may have occurred due to the inherent limitations of voice recognition software. These areas are purely typographical due to imperfections of the software programs and do not reflect any compromise in the patient's medical care. Please read the chart carefully and recognize, using context, where these substitutions have occurred. Chief Complaint: Abnormal LAB's Time Seen by MD: 20:54 Primary Care Provider: MASSIMO Reviewed Notes: Allergies Allergies: Coded Allergies: NO KNOWN ALLERGIES (Unverified , 07/03/16) Home Meds Active Scripts Pantoprazole Sodium Sesquihydr (Protonix) 40 Mg Tab, 40 MG PO BID for 30 Days, #60 TAB 1 Refill Prov:NADEGE COLES RESIDENT 03/30/24 Sucralfate (CARAFATE SUSP) 1 Gm/10 Ml Ss, 1 GM GT QID@0600,1130,1700,2200 for 30 Days, #10 ML 2 Refills Prov:NADEGE COLES RESIDENT 03/30/24 Metoprolol Tartrate (Lopressor) 25 Mg Tb, 25 MG PO BID for 30 Days, #60 TAB 2 Refills Prov:NADEGE COLES [facility] 03/30/24 Levofloxacin Hemihydrate (LEVAQUIN 500 MG) 500 Mg Tab, 1 TAB PO DAILY for 5 D ays, #5 TAB Prov:NADEGE COLES [facility] 03/30/24 Amlodipine Besylate (NORVASC TABLET) 5 Mg Tb, 10 MG PO DAILY for 30 Days, #60 TAB 2 Refills Prov:NADEGE COLES [facility] 03/30/24 Reported Medications Diltiazem Hcl (DILTIAZEM HCL ER) 240 Mg Cap, 1 CAP PO DAILY, CAP 5 Refills 03/27/24 Atorvastatin Calcium (ATORVASTATIN CALCIUM) 80 Mg Tab, 1 TAB PO DAILY, #30 TAB 5 Refills 03/26/24 Metformin Hydrochloride (Metformin Hcl) 850 Mg Tab, 1000 MG PO TID, MG 07/03/16 Information Source: Patient, Spouse Mode of Arrival: Wheelchair Past Medical History PAST MEDICAL HISTORY: DM, High Lipids, HTN Surgical History: Appendectomy, Hernia Repair 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 Was a procedure done?: No EKG EKG : Pulse Rate (adult): 87 [place]: Normal Cardiac Rhythm: NSR Block: None Hypertrophy: None ST: Normal Differential Dx Considerations may include: ACS, electrolyte abnormalities, renal failure, X-Ray, Labs, Meds, VS Vital Signs Date Time Temp Pulse Resp B/P (MAP) Pulse Ox O2 Delivery O2 Flow Rate FiO2 03/11/25 02:05 97.6 77 17 154/78 (103) 100 97.6 03/10/25 22:08 87 03/10/25 20:35 87 03/10/25 20:21 98.5 90 18 149/77 97 98.5 Lab Test 03/10/25 21:16 Range/Units White Blood Count 7.1 4.4-10.8 10^3/uL Red Blood Count 3.73 L 4.0-5.20 10^6/uL Hemoglobin 10.3 L 12.2-16.2 g/dL Hematocrit 30.5 L 36.0-46.0 % Mean Corpuscular Volume 81.8 80.0-100.0 fL Mean Corpuscular Hemoglobin 27.6 L 28.0-32.0 pg Mean Corpuscular Hemoglobin Concent 33.7 32.0-36.0 g/dL Red Cell Distribution Width 14.9 H 11.8-14.3 % Platelet Count 314 140-450 10^3/uL Mean Platelet Volume 8.7 6.9-10.8 fL Neutrophils (%) (Auto) 71.1 37.0-80.0 % Lymphocytes (%) (Auto) 22.7 10.0-50.0 % Monocytes (%) (Auto) 4.2 0.0-12.0 % Eosinophils (%) (Auto) 1.4 0.0-7.0 % Basophils (%) (Auto) 0.6 0.0-2.0 % Neutrophils # (Auto) 5.0 1.6-8.6 10 ^3/uL Lymphocytes # (Auto) 1.6 0.4-5.4 10 ^3/uL Monocytes # (Auto) 0.3 0-1.3 10 ^3/uL Eosinophils # (Auto) 0.1 0-0.8 10 ^3/uL Basophils # (Auto) 0 0-0.2 10 ^3/uL Nucleated Red Blood Cells 0.1 % Sodium Level 142 136-145 mmol/L Potassium Level 4.9 3.5-5.1 mmol/L Chloride Level 108 H 98-107 mmol/L Carbon Dioxide Level 23 20-31 mmol/L Anion Gap 11 5-15 Blood Urea Nitrogen 39 H 9-23 mg/dL Creatinine 2.88 H 0.550-1.02 mg/dL Glomerular Filtration Rate Calc 18 >90 mL/min BUN/Creatinine Ratio 13.5 10.0-20.0 Serum Glucose 209 H 74-106 mg/dL Calcium Level 10.3 8.7-10.4 mg/dL Magnesium Level 2.3 1.6-2.6 mg/dL Troponin I High Sensitivity 4 </=34 ng/L Time of 1ST Reevaluation: 02:20 Reevaluation 1ST: N/A Patient Education/Counseling: Diagnosis, Treatment Family Education/Counseling: Diagnosis, Treatment Comments MDM: patient presented with the above HPI.---abnormal lab with presumed elevated potassium---workup was initiated. patient was found with the above mentioned diagnosis. the following medications were ordered: please refer to order lists of meds and tests obtained by myself Dr. Buenrostro. Patient ED course and VS have been stabilized. Patient has been reassessed in the ED and remained in a stable condition. Pertinent incidental findings were discussed with the patient and/or family. Patient/family voices understanding and is agreeable with plan. Patient has been observed in the ED adequate length of time to insure improvement/stability. Escalation of care considered: Consideration of escalation to observation or admission Patient was found with the acute renal insufficiency. Patient was given fluids. Patient was ADMITTED to the medicine team for further evaluation and treatment of their presentation. All the reports of any imaging studies that were ordered by myself were reviewed by myself. SEPSIS Sepsis Screen Date sepsis recognized/suspect: Mar 10, 2025 Time Sepsis recognized/suspect: 2026 Recent Procedure: No On Antibiotic Therapy: No Respiratory Rate >20: No Heart Rate >90: No Temp<36 C (96.8 F) or >38.3 C: No SBP <90 or MAP <65 mmHG: No New Acute Mental Status Change: No Is the patient on CPAP, BIPAP,: No Physician Orders Radio Despatcher (03/10/25 ) Vital Signs Date Time Temp Pulse Resp B/P (MAP) Pulse Ox O2 Delivery O2 Flow Rate FiO2 03/11/25 02:05 97.6 77 17 154/78 (103) 100 97.6 03/10/25 22:08 87 03/10/25 20:35 87 03/10/25 20:21 98.5 90 18 149/77 97 98.5 Laboratory Tests Test 03/10/25 21:16 White Blood Count 7.1 10^3/uL (4.4-10.8) Departure 1 Departure Time of Disposition: 22:24 Impression: Primary Impression: Acute renal failure Disposition: ADMITTED INPATIENT Admit to: Tele Condition: Guarded Discharged With: Self Critical Care Note Critical Care Time?: No I personally scribed for POLLY BUENROSTRO DO ([facility] on 03/10/25 at 21:50. Electronically submitted by Andie Hyman ([facility]). I personally scribed for POLLY BUENROSTRO DO ([facility]) on 03/10/25 at 22:07. Electronically submitted by Andie Hyman ([facility] I personally scribed for POLLY BUENROSTRO DO ([facility]) on 03/10/25 at 22:08. Electronically submitted by [facility]yman ([facility] POLLY BUENROSTRO DO Mar 10, 2025 21:50
[2025-03-10 21:58] LABS: Blood Urea Nitrogen 39 mg/dL (9-23); Glucose 209 mg/dL (74-106)
--- NOTE | 2025-03-11 01:45 | ECG ---
[facility] Test Date: 2025-03-10 Test Time: 20:35:40 Pat Name: SAGE YIN Department: [facility] ED Patient ID: [id number] Room: 0240 Gender: F Martial Arts Instructor: paras : 1965 Requested By: EMERGENCY EMERGENCY Order Number: [id number] Reading MD: Cy Jason Measurements Intervals [place] Rate: 87 P: 15 WY: 125 QRS: 19 QRSD: 87 T: 61 QT: 346 QTc: 417 Interpretive Statements Sinus rhythm Electronically Signed On 03-12-2025 9:57:02 PDT by yC Jason Please click the below link to view image of tracing.
[2025-03-11] MEDS ORDERED: GAB100C PO (08:11)
[2025-03-11] MEDS ORDERED: ASPI81CH49 PO (08:11)
[2025-03-11] MEDS ORDERED: EMPA1TAB PO (08:11)
[2025-03-11] MEDS ORDERED: ATOR20TA50 PO (08:11)
[2025-03-11] MEDS ORDERED: HYDR25TA5 PO (08:11)
[2025-03-11] MEDS ORDERED: CLOP75TA70 PO (08:11)
--- NOTE | 2025-03-11 08:14 | DVHHP2 ---
History of Present Illness Reason for Visit: Abnormal labs History of Present Illness Gretchen Pace is a 59-year-old female with past medical history of CVA with left sided weakness, diabetes, hypertension, and hyperlipidemia, who came to the hospital due to abnormal labs. Patient states she was recently sent to see a chefs due to new diagnosis of kidney disease. She had labs drawn last week and was called and told to go to the ER due to elevated KCL levels and acute kidney disease. Patient is not able to remember the name of chefs she was sent to. 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) Endocrine: Diabetes Past Surgical History: Appendectomy, Hernia Repair, Other (right breast cyst) Smoke: No ALCOHOL: none Drugs: None Lives: with Family Domestic Violence: Neg Review of Systems Constitutional: No: Fever, Chills, Sweats, Weakness, Malaise, Other Eyes: No: Pain, Vision change, Conjunctivae inflammation, Eyelid inflammation, Other, Redness ENT: No: Ear pain, Ear discharge, Nose pain, Nose discharge, Nose congestion, Mouth pain, Mouth swelling, Throat pain, Throat swelling, Other Respiratory: No: Cough, Dry, Shortness of breath, SOB with excertion, Wheezing, Hemoptysis, Pleuritic Pain, Sputum, Wheezing, Other Cardiovascular: No: Chest Pain, Palpitations, Orthopnea, Paroxysmal Noc. Dyspnea, Edema, Lt Headedness, Other Gastrointestinal: No: Nausea, Vomiting, Abdominal Pain, Diarrhea, Constipation, Melena, Hematochezia, Other Genitourinary: No Dysuria, No Frequency, No Incontinence, No Hematuria, No Retention, No Other Musculoskeletal: No: other, neck pain, shoulder pain, arm pain, back pain, hand pain, leg pain, foot pain Skin: No: Rash, Lesions, Jaundice, Bruising, Other Neurological: No: Weakness, Numbness, Incoordination, Change in speech, Confusion, Seizures, Other Allergies: Coded Allergies: NO KNOWN ALLERGIES (Unverified , 07/03/16) Medications Current Medications Medications Dose Ordered Sig/Clem Route Start Time Stop Time Status Last Admin Dose Admin Acetaminophen/ Hydrocodone Bitart 1 tab Q4HP PRN PO 03/11/25 08:15 UNV Ondansetron HCl 4 mg Q4HP PRN IV 03/11/25 08:15 UNV Docusate Sodium 100 mg BIDPRN PRN PO 03/11/25 08:15 UNV Acetaminophen 650 mg Q6HP PRN PO 03/11/25 08:15 UNV Exam Vital Signs Vital Signs Date Time Temp Pulse Resp B/P (MAP) Pulse Ox O2 Delivery O2 Flow Rate FiO2 03/11/25 07:03 97.5 73 17 151/84 (106) 98 97.5 General Appearance: Alert, Oriented X3, Cooperative, moderate distress HEENT: Atraumatic, PERRLA, Other (Mucous membr dry) Cardiovascular: Regular rate, Normal S1, Normal S2, No murmurs, Gallops Abdominal: Normal bowel sounds, Soft, No tenderness, No hepatospenomegaly Extremities: No clubbing, No cyanosis, Normal pulses, Other (edema in left upper extremity) Skin: No rashes, No breakdown, No significant lesion Neuro: Other (Has left sided weakness and difficulty speaking from previous CVA, mostly wheelchair bound) Psych/Mental Status: Mental status NL, Mood NL Labs/Xrays Labs Test 03/10/25 21:16 Range/Units White Blood Count 7.1 4.4-10.8 10^3/uL Red Blood Count 3.73 L 4.0-5.20 10^6/uL Hemoglobin 10.3 L 12.2-16.2 g/dL Hematocrit 30.5 L 36.0-46.0 % Mean Corpuscular Volume 81.8 80.0-100.0 fL Mean Corpuscular Hemoglobin 27.6 L 28.0-32.0 pg Mean Corpuscular Hemoglobin Concent 33.7 32.0-36.0 g/dL Red Cell Distribution Width 14.9 H 11.8-14.3 % Platelet Count 314 140-450 10^3/uL Mean Platelet Volume 8.7 6.9-10.8 fL Neutrophils (%) (Auto) 71.1 37.0-80.0 % Lymphocytes (%) (Auto) 22.7 10.0-50.0 % Monocytes (%) (Auto) 4.2 0.0-12.0 % Eosinophils (%) (Auto) 1.4 0.0-7.0 % Basophils (%) (Auto) 0.6 0.0-2.0 % Neutrophils # (Auto) 5.0 1.6-8.6 10 ^3/uL Lymphocytes # (Auto) 1.6 0.4-5.4 10 ^3/uL Monocytes # (Auto) 0.3 0-1.3 10 ^3/uL Eosinophils # (Auto) 0.1 0-0.8 10 ^3/uL Basophils # (Auto) 0 0-0.2 10 ^3/uL Nucleated Red Blood Cells 0.1 % Sodium Level 142 136-145 mmol/L Potassium Level 4.9 3.5-5.1 mmol/L Chloride Level 108 H 98-107 mmol/L Carbon Dioxide Level 23 20-31 mmol/L Anion Gap 11 5-15 Blood Urea Nitrogen 39 H 9-23 mg/dL Creatinine 2.88 H 0.550-1.02 mg/dL Glomerular Filtration Rate Calc 18 >90 mL/min BUN/Creatinine Ratio 13.5 10.0-20.0 Serum Glucose 209 H 74-106 mg/dL Calcium Level 10.3 8.7-10.4 mg/dL Magnesium Level 2.3 1.6-2.6 mg/dL Troponin I High Sensitivity 4 </=34 ng/L SEPSIS Sepsis Screen Date sepsis recognized/suspect: Mar 10, 2025 Time Sepsis recognized/suspect: 2026 Recent Procedure: No On Antibiotic Therapy: No Respiratory Rate >20: No Heart Rate >90: No Temp<36 C (96.8 F) or >38.3 C: No SBP <90 or MAP <65 mmHG: No New Acute Mental Status Change: No Is the patient on CPAP, BIPAP,: No Physician Orders Admit (03/11/25 08:05) Code Status (03/11/25 08:05) Renal Standard(2gna,3gk,Lopho) (03/11/25 Breakfast) Hydrocodone-Acet 5/325mg Tab ([place] 5/32 (03/11/25 08:15) Ondansetron Hcl (Zofran) (03/11/25 08:15) Docusate Sodium Capsule (Colace Capsule) (03/11/25 08:15) Complete Blood Count (03/12/25 04:00) Comprehensive Metabolic Panel (03/12/25 04:00) Condition: Serious (03/11/25 08:05) Acetaminophen Tablet (Tylenol Tablet) (03/11/25 08:15) *Dr. Michael Lopes [facility] (03/11/25 08:09) Glucose Blood (Accu-Chek Comfort Curve T (03/11/25 11:30) Bedtime Insulin Scale (03/11/25 22:00) Moderate Insulin Ss (03/11/25 11:30) Dextrose 50% Syringe (03/11/25 08:15) Atorvastatin (Lipitor) (03/11/25 10:00) Clopidogrel Bisulfate (Plavix) (03/11/25 10:00) Empagliflozin (Jardiance) (03/11/25 10:00) Gabapentin Capsule (Neurontin Capsule) (03/11/25 14:00) Hydrochlorothiazide Tablet (Hydrochlorot (03/11/25 10:00) (Nf) Aspirin (03/11/25 10:00) Vital Signs Date Time Temp Pulse Resp B/P (MAP) Pulse Ox O2 Delivery O2 Flow Rate FiO2 03/11/25 07:03 97.5 73 17 151/84 (106) 98 97.5 03/11/25 02:05 97.6 77 17 154/78 (103) 100 97.6 Laboratory Tests Test 03/10/25 21:16 White Blood Count 7.1 10^3/uL (4.4-10.8) Assessment/Plan Assessment/Plan Assessment: Acute on chronic renal failure, Hyperglycemia, Hypertension, Hyperlipidemia, Diabetes, Plan: Admit to Med-Surg, Nephrology consul, IV hydration, Manage/Monitor electrolytes closely, A1c, Accu checks Q AC&HS with sliding scale, Home mediations reconciled, Plan discussed with: Patient My Orders Orders - EMI CEDENO Procedure Category Date Status Time Admit ADMIT 03/11/25 Transmitted 08:05 Code Status CODE 03/11/25 Transmitted 08:05 Renal DIET 03/11/25 Transmitted Standard(2gna,3gk,Lopho) Breakfast Hydrocodone-Acet PHA 03/11/25 Logged 5/325mg Tab ([place] 08:15 Ondansetron Hcl PHA 03/11/25 Logged (Zofran) 08:15 Docusate Sodium PHA 03/11/25 Logged Capsule (Colace 08:15 Complete Blood Count LAB 03/12/25 Verified 04:00 Comprehensive LAB 03/12/25 Verified Metabolic Panel 04:00 Condition: Serious EDUARDO 03/11/25 In Process 08:05 Acetaminophen Tablet PHA 03/11/25 Logged (Tylenol Tablet) 08:15 *Dr. [facility] CONS 03/11/25 Transmitted -[place] 08:09 Glucose Blood PHA 03/11/25 Verified (Accu-Chek Comfort 11:30 Bedtime Insulin Scale PHA 03/11/25 Verified 22:00 Moderate Insulin Ss PHA 03/11/25 Verified 11:30 Dextrose 50% Syringe PHA 03/11/25 Verified 08:15 Atorvastatin (Lipitor) PHA 03/11/25 Verified 10:00 Clopidogrel Bisulfate PHA 03/11/25 Verified (Plavix) 10:00 Empagliflozin PHA 03/11/25 Verified (Jardiance) 10:00 Gabapentin Capsule PHA 03/11/25 Verified (Neurontin Capsule) 14:00 Hydrochlorothiazide PHA 03/11/25 Verified Tablet (Hydrochlorot 10:00 (Nf) Aspirin PHA 03/11/25 Verified 10:00 Date of Service: Mar 11, 2025 Billing Provider: EMI CEDENO Common Visit Codes: [id number] INP/OBS CARE (MOD) EMI CEDENO Mar 11, 2025 08:14
[2025-03-11] MEDS ORDERED: DEXTROSE (50%) 50ML SYRG IV PRN (08:15)
[2025-03-11] MEDS ORDERED: HYDROcodone-ACET 5/325MG TAB PO PRN (08:15)
[2025-03-11] MEDS ORDERED: ONDANSETRON HCL 4 MG/2 ML VIAL IV PRN (08:15)
[2025-03-11] MEDS ORDERED: PATIENTS OWN MEDICATION (Aspirin 1 TAB) PO SCH (10:00)
[2025-03-11] MEDS ORDERED: NIFE1TAB30 PO (10:56)
[2025-03-11] MEDS ORDERED: SITA100T7 PO (10:56)
[2025-03-11] MEDS: SODIUM CHLORIDE 0.9% 1,000 ML IV ONE ×2 (11:15→13:25)
[2025-03-11] MEDS: SODIUM CHLORIDE 0.9% 500 ML IV ONE (11:15)
[2025-03-11] MEDS: ACCU-CHEK COMFORT CURVE STRIP VI SCH (11:30)
[2025-03-11 11:52] LABS: Sodium 143 mmol/L (136-145)
[2025-03-11 11:53] LABS: Anion Gap 8 (5-15); Carbon Dioxide 26 mmol/L (20-31)
[2025-03-11 11:57] LABS: Potassium 5.3 mmol/L (3.5-5.1)
[2025-03-11 11:58] LABS: BUN/Creatinine Ratio 12.9 (10.0-20.0); Blood Urea Nitrogen 35 mg/dL (9-23); Calcium 10.4 mg/dL (8.7-10.4); Chloride 109 mmol/L (98-107); Glucose 206 mg/dL (74-106)
[2025-03-11 11:59] LABS: Magnesium 2.3 mg/dL (1.6-2.6)
[2025-03-11] MEDS: ATORVASTATIN 20 MG TAB PO SCH (12:45)
[2025-03-11] MEDS: hydroCHLOROthiazide 25 MG TAB PO SCH (12:45)
[2025-03-11] MEDS: EMPAGLIFLOZIN 10 MG TAB PO SCH (12:46)
[2025-03-11] MEDS: CLOPIDOGREL BISULFATE 75 MG TAB PO SCH (12:46)
[2025-03-11] MEDS: GABAPENTIN 300 MG CAP PO SCH (12:46)
[2025-03-11] MEDS: InsuLIN REG 1unit/0.01ml Soln (100units/ml) SC SCH ×2 (13:05→21:29)
[2025-03-11] MEDS ORDERED: GABAPENTIN 100 MG CAP PO SCH (14:00)
--- NOTE | 2025-03-11 15:05 | DVH ---
INDICATION: Renal failure TECHNIQUE: Multiple real-time sonographic images of the kidneys and bladder were obtained. COMPARISON: US KIDNEY on DOS: 03/26/24 FINDINGS: The right kidney measures 11 cm in length, which is normal in size. There is increased echo genicity of the right kidney. Possible mild right hydronephrosis. The left kidney measures 11 cm in length, which is normal in size. There is increased echogenicity of the left kidney. No hydronephrosis. Left renal cyst measuring 1.6 cm. No large intraluminal masses are seen in the bladder. Prior to voiding the bladder volume measures vo lume 798 cc. IMPRESSION: Echogenic bilateral kidneys suggestive of chronic medical renal disease.Possible mild right hydroneph rosis.
[2025-03-11] MEDS: hydrALAZINE HCL 20 MG/ML VL IV PRN (15:57)
--- NOTE | 2025-03-11 16:18 | DVHPN2 ---
Subjective Patient continues to have foggy headedness Reviewed: Care Plan, H&P, Labs, Medications Changes from previous H/P or p: No Changes General: Per HPI Eyes: No Pain, No Vision change, No Conjunctivae inflammation, No Eyelid inflammation, No Other, No Redness ENT: No Ear pain, No Ear discharge, No Nose pain, No Nose discharge, No Nose congestion, No Mouth pain, No Mouth swelling, No Throat pain, No Throat swelling, No Other Cardiovascular: No Chest Pain, No Palpitations, No Orthopnea, No Paroxysmal Noc. Dyspnea, No Edema, No Lt Headedness, No Other Respiratory: No Cough, No Dry, No Shortness of breath, No SOB with excertion, No Wheezing, No Hemoptysis, No Pleuritic Pain, No Sputum, No Other Gastrointestinal: No Nausea, No Vomiting, No Abdominal Pain, No Diarrhea, No Constipation, No Melena, No Hematochezia, No Other Genitourinary: No Dysuria, No Frequency, No Incontinence, No Hematuria, No Retention, No Other Musculoskeletal: No other, No neck pain, No shoulder pain, No arm pain, No back pain, No hand pain, No leg pain, No foot pain Skin: No Rash, No Lesions, No Jaundice, No Bruising, No Other Objective Vitals Vital Signs Date Time Temp Pulse Resp B/P (MAP) Pulse Ox O2 Delivery O2 Flow Rate FiO2 03/11/25 15:57 202/95 03/11/25 12:31 98.7 71 14 99 98.7 General Appearance: Alert, Oriented X3, Cooperative, No acute distress HEENT: Atraumatic, PERRLA Cardiovascular: Normal S1, Normal S2 Abdomen: Normal bowel sounds, Soft, No tenderness, No hepatospenomegaly, No masses Genitourinary: No Apparent Abnormalities Neuro: Normal gait, Normal speech Skin: Dry, Intact Psych/Mental Status: Mental status NL, Mood NL Medications Current Medications Medications Dose Ordered Sig/Clem Route Start Time Stop Time Status Last Admin Dose Admin Acetaminophen/ Hydrocodone Bitart 1 tab Q4HP PRN PO 03/11/25 08:15 Ondansetron HCl 4 mg Q4HP PRN IV 03/11/25 08:15 Docusate Sodium 100 mg BIDPRN PRN PO 03/11/25 08:15 Acetaminophen 650 mg Q6HP PRN PO 03/11/25 08:15 Diagnostic Test (Pha) 1 strip ACHS 03/11/25 11:30 03/11/25 11:30 1 STRIP Insulin Human Regular HS SC 03/11/25 22:00 Insulin Human Regular AC SC 03/11/25 11:30 03/11/25 13:05 6 UNITS Dextrose 50 ml UD PRN IV 03/11/25 08:15 Atorvastatin Calcium 20 mg DAILY PO 03/11/25 10:00 03/11/25 12:45 20 MG Clopidogrel Bisulfate 75 mg DAILY PO 03/11/25 10:00 03/11/25 12:46 75 MG Empaglifozin 10 mg DAILY PO 03/11/25 10:00 03/11/25 12:46 10 MG Gabapentin 100 mg TID PO 03/11/25 14:00 UNV Hydrochlorothiazide 25 mg DAILY PO 03/11/25 10:00 03/11/25 12:45 25 MG Patient Own Medication 1 tab DAILY PO 03/11/25 10:00 UNV Gabapentin 300 mg DAILY PO 03/11/25 10:00 03/11/25 12:46 300 MG Aspirin 81 mg DAILY PO 03/11/25 10:00 03/11/25 12:43 81 MG Patient Own Medication 60 mg DAILY PO 03/12/25 10:00 UNV Patient Own Medication 1 tab DAILY PO 03/12/25 10:00 Nifedipine 90 mg DAILY PO 03/12/25 10:00 Hydralazine HCl 10 mg Q6HP PRN IV 03/11/25 15:45 03/11/25 15:57 10 MG Clonidine HCl 0.1 mg Q4HP PRN PO 03/11/25 15:45 Laboratory Results Laboratory Tests 03/10/25 21:16 03/11/25 11:16 Chemistry Test 03/10/25 21:16 03/11/25 11:16 Calcium Level 10.3 mg/dL (8.7-10.4) 10.4 mg/dL (8.7-10.4) Magnesium Level 2.3 mg/dL (1.6-2.6) 2.3 mg/dL (1.6-2.6) HgA1c, TSH Test 03/11/25 11:16 Hemoglobin A1c 7.7 % A1C (<5.7) H Labs and/or images reviewed: Labs reviewed by me, Image(s) reviewed by me Assessment/Plan Assessment/Plan Impression: -hypertensive crisis -hyperkalemia -chronic kidney disease stage IIIB/four -diabetes mellitus Plan: -nephrology consultation -I was called regarding patient's blood pressure continuing to be elevated. New PRNs ordered -potassium lowering agent -renal ultrasound -regular insulin sliding scale -repeat labs in a.m. Total time spent with patient discussing and formulating plan of care: 35 minutes. This medical document was created using an electronic medical record system with [email or web address] dictation system. Although this document has been carefully reviewed, there may still be some phonetic and typographical errors. These areas are purely typographical due to imperfections of the software programs, and do not reflect any compromise in the patient's medical care. Plan discussed with: Patient, Other (RN) My Orders Orders - SAMMY MACDONALD NP Procedure Category Date Status Time Kidney US 03/11/25 Resulted 14:17 Nifedipine Er PHA 03/12/25 In Process (Procardia Xl 10:00 Hydralazine Injection PHA 03/11/25 In Process (Apresoline Inject 15:45 Clonidine Hcl Tablet PHA 03/11/25 In Process (Catapres Tablet) 15:45 Urinalysis LAB 03/11/25 Logged 15:39 Date of Service: Mar 11, 2025 Billing Provider: SAMMY MACDONALD NP Common Visit Codes: [id number] INP/OBS CARE(HIGH) SAMMY MACDONALD NP Mar 11, 2025 16:18
[2025-03-11 17:00] VITALS: BP 162/99; PULSE 78; RESP 18; TEMP 97.8; O2SAT 98
[2025-03-11] MEDS: SODIUM ZIRCONIUM CYCL 10 GM PAK PO ONE (18:12)
[2025-03-11 20:00] VITALS: RESP 18
--- NOTE | 2025-03-11 20:56 | DVHINCON2 ---
Date of service: Mar 11, 2025 Reason for Consultation monie History of Present Illness 59 years old female past medical history diabetes for greater than 20 years hypertension 20 years, dyslipidemia, Chronic kidney disease IIIb/4, CVA 3 times presented with chief complaints of abnormal labs patient has been taking monthly IV infusions [place] a different city for unknown reason and unknown medication as per the spouse who is bedside she also complains headache Past surgical history hernia repair and appendix surgery Denies any urinary complaints denies smoking drinking drug use Baseline GFR 40-45 in March 2024 Past Medical History As per HPI Past Surgical History As per hpi Allergies: Coded Allergies: NO KNOWN ALLERGIES (Unverified , 07/03/16) Home Meds Active Scripts Pantoprazole Sodium Sesquihydr (Protonix) 40 Mg Tab, 40 MG PO BID for 30 Days, #60 TAB 1 Refill Prov:NADEGE COLES RESIDENT 03/30/24 Sucralfate (CARAFATE SUSP) 1 Gm/10 Ml Ss, 1 GM GT QID@0600,1130,1700,2200 for 30 Days, #10 ML 2 Refills Prov:NADEGE COLES RESIDENT 03/30/24 Reported Medications Nifedipine (Nifedipine Er) 60 Mg Tab, 60 MG PO DAILY 03/11/25 Sitagliptin Phosphate (Januvia) 100 Mg Tab, 1 TAB PO DAILY 03/11/25 Gabapentin (Gabapentin) 100 Mg Cap, 1 CAP PO TID 03/11/25 Clopidogrel Bisulfate (CLOPIDOGREL) 75 Mg Tab, 1 TAB PO DAILY 03/11/25 Atorvastatin Calcium (ATORVASTATIN CALCIUM) 20 Mg Tab, 1 TAB PO DAILY 03/11/25 Hctz (Hydrochlorothiazide) 25 Mg Tab, 1 TAB PO DAILY 03/11/25 Empagliflozin (Jardiance) 10 Mg Tab, 1 TAB PO DAILY 03/11/25 Aspirin (Aspirin) 81 Mg Chw, 1 TAB PO DAILY 03/11/25 Diltiazem Hcl (DILTIAZEM HCL ER) 240 Mg Cap, 1 CAP PO DAILY, CAP 5 Refills 03/27/24 Discontinued Reported Medications Atorvastatin Calcium (ATORVASTATIN CALCIUM) 80 Mg Tab, 1 TAB PO DAILY, #30 TAB 5 Refills 03/26/24 Metformin Hydrochloride (Metformin Hcl) 850 Mg Tab, 1000 MG PO TID, MG 07/03/16 Discontinued Scripts Metoprolol Tartrate (Lopressor) 25 Mg Tb, 25 MG PO BID for 30 Days, #60 TAB 2 Refills Prov:NADEGE COLES RESIDENT 03/30/24 Levofloxacin Hemihydrate (LEVAQUIN 500 MG) 500 Mg Tab, 1 TAB PO DAILY for 5 Days, #5 TAB Prov:NADEGE COLES RESIDENT 03/30/24 Amlodipine Besylate (NORVASC TABLET) 5 Mg Tb, 10 MG PO DAILY for 30 Days, #60 TAB 2 Refills Prov:NADEGE COLES RESIDENT 03/30/24 Current Medications Current Medications Medications (Trade) Dose Ordered Sig/Clem Route PRN Reason Start Time Stop Time Status Last Admin Acetaminophen/ Hydrocodone Bitart ([place] 5/325MG Tab) 1 tab Q4HP PRN PO MODERATE PAIN (4-6 PAIN SCALE) 03/11/25 08:15 Ondansetron HCl (Zofran) 4 mg Q4HP PRN IV NAUSEA / VOMITING 03/11/25 08:15 Docusate Sodium (Colace Capsule) 100 mg BIDPRN PRN PO FOR CONSTIPATION 03/11/25 08:15 Acetaminophen (Tylenol Tablet) 650 mg Q6HP PRN PO PAIN SCALE 1-3 OR TEMP>100.4 03/11/25 08:15 Diagnostic Test (Pha) (Accu-Chek Comfort Curve T) 1 strip ACHS 03/11/25 11:30 03/11/25 17:00 Insulin Human Regular (InsuLIN R) HS SC 03/11/25 22:00 Insulin Human Regular (InsuLIN R) AC SC 03/11/25 11:30 03/11/25 13:05 Dextrose 50 ml UD PRN IV Blood Sugar LESS THAN 60 03/11/25 08:15 Atorvastatin Calcium (Lipitor) 20 mg DAILY PO 03/11/25 10:00 03/11/25 12:45 Clopidogrel Bisulfate (Plavix) 75 mg DAILY PO 03/11/25 10:00 03/11/25 12:46 Empaglifozin (Jardiance) 10 mg DAILY PO 03/11/25 10:00 03/11/25 20:43 DC 03/11/25 12:46 Gabapentin (Neurontin Capsule) 100 mg TID PO 03/11/25 14:00 UNV Hydrochlorothiazide (hydroCHLOROthiazide TABLET) 25 mg DAILY PO 03/11/25 10:00 03/11/25 20:43 DC 03/11/25 12:45 Patient Own Medication 1 tab DAILY PO 03/11/25 10:00 UNV Gabapentin (Neurontin Capsule) 300 mg DAILY PO 03/11/25 10:00 03/11/25 12:46 Aspirin 81 mg DAILY PO 03/11/25 10:00 03/11/25 12:43 Patient Own Medication 60 mg DAILY PO 03/12/25 10:00 UNV Patient Own Medication 1 tab DAILY PO 03/12/25 10:00 Nifedipine (Procardia Xl (Time-Release)) 60 mg DAILY PO 03/12/25 10:00 03/11/25 15:38 DC Nifedipine (Procardia Xl (Time-Release)) 90 mg DAILY PO 03/12/25 10:00 Hydralazine HCl (Apresoline Injection) 10 mg Q6HP PRN IV SBP>150 03/11/25 15:45 03/11/25 15:57 Clonidine HCl (Catapres Tablet) 0.1 mg Q4HP PRN PO SBP>150 03/11/25 15:45 03/11/25 18:27 Hydralazine HCl (Apresoline Tablet) 25 mg Q6HR PO 03/11/25 20:45 UNV Family History: Diabetes mellitus G8 SISTER, G8 MOTHER, G8 FATHER, Review of Systems As per HPI H&P Exam Vital Signs/I&O Vital Sign Date Time Temp Pulse Resp B/P (MAP) Pulse Ox O2 Delivery O2 Flow Rate FiO2 03/11/25 18:27 191/94 03/11/25 17:00 97.8 78 18 98 97.8 Physical Exam General-not in any distress HEENT-normocephalic, no icterus, no pallor, neck supple, blindness Respiratory-fair air entry bilateral, no rhonchi, no wheeze [id number] heard, no murmurs appreciated Abdominal-soft, nontender, nondistended Musculoskeletal-no pedal edema, no calf tenderness Genitourinary-deferred Neuro-awake alert oriented x3, Psychiatric-not agitated, cooperative, Labs/Diagnostic Data Labs/Diagnostic Data Laboratory Tests Test 03/11/25 18:05 03/11/25 12:54 03/11/25 11:16 03/10/25 21:16 Range/Units POC Glucose 74 201 H 70-106 mg/dl Sodium Level 143 142 136-145 mmol/L Potassium Level 5.3 H 4.9 3.5-5.1 mmol/L Chloride Level 109 H 108 H 98-107 mmol/L Carbon Dioxide Level 26 23 20-31 mmol/L Anion Gap 8 11 5-15 Blood Urea Nitrogen 35 H 39 H 9-23 mg/dL Creatinine 2.72 H 2.88 H 0.550-1.02 mg/dL Glomerular Filtration Rate Calc 19 18 >90 mL/min BUN/Creatinine Ratio 12.9 13.5 10.0-20.0 Serum Glucose 206 H 209 H 74-106 mg/dL Hemoglobin A1c 7.7 H <5.7 % A1C Calcium Level 10.4 10.3 8.7-10.4 mg/dL Magnesium Level 2.3 2.3 1.6-2.6 mg/dL White Blood Count 7.1 4.4-10.8 10^3/uL Red Blood Count 3.73 L 4.0-5.20 10^6/uL Hemoglobin 10.3 L 12.2-16.2 g/dL Hematocrit 30.5 L 36.0-46.0 % Mean Corpuscular Volume 81.8 80.0-100.0 fL Mean Corpuscular Hemoglobin 27.6 L 28.0-32.0 pg Mean Corpuscular Hemoglobin Concent 33.7 32.0-36.0 g/dL Red Cell Distribution Width 14.9 H 11.8-14.3 % Platelet Count 314 140-450 10^3/uL Mean Platelet Volume 8.7 6.9-10.8 fL Neutrophils (%) (Auto) 71.1 37.0-80.0 % Lymphocytes (%) (Auto) 22.7 10.0-50.0 % Monocytes (%) (Auto) 4.2 0.0-12.0 % Eosinophils (%) (Auto) 1.4 0.0-7.0 % Basophils (%) (Auto) 0.6 0.0-2.0 % Neutrophils # (Auto) 5.0 1.6-8.6 10 ^3/uL Lymphocytes # (Auto) 1.6 0.4-5.4 10 ^3/uL Monocytes # (Auto) 0.3 0-1.3 10 ^3/uL Eosinophils # (Auto) 0.1 0-0.8 10 ^3/uL Basophils # (Auto) 0 0-0.2 10 ^3/uL Nucleated Red Blood Cells 0.1 % Troponin I High Sensitivity 4 </=34 ng/L Assessment Acute kidney injury on Chronic kidney disease IIIb/4--hemodynamic etiology Uncontrolled hypertension Diabetes/underlying diabetic nephropathy Obesity Hyperkalemia Recommendations She has received enough IV fluids since admission IV Lasix once Hold thiazide diuretic and SGLT2 inhibitor Blood pressure meds adjusted Kidney ultrasound noted No indication for emergent dialysis for now Low-potassium diet kelmt as ordered We will follow closely Discussed with spouse bedside Patient was taking monthly IV infusions in a different city for unknown reason spouse advised to find the details exactly Reviewed vital signs, lab work, imaging studies, medications, microbiology, other physician recommendations Total time spent 80 minutes More than 50% of the time spent providing direct [id number] care . Thank you for allowing me to participate in the care of your patient. Plan discussed with: Patient, Spouse PETER CASILLAS MD Mar 11, 2025 20:56
[2025-03-11 21:00] VITALS: BP 144/82; PULSE 90; RESP 17; TEMP 97.2; O2SAT 98
[2025-03-11] MEDS: FUROSEMIDE 40 MG/4 ML VIAL IV ONE (21:29)
[2025-03-12] VITALS (8 sets, daily range): BP systolic 119–145; BP diastolic 57–81; PULSE 74–83; RESP 16–18; TEMP 97.4–98.4; O2SAT 96–99
[2025-03-12 07:27] LABS: Hematocrit 27.8 % (36.0-46.0); Hemoglobin 9.5 g/dL (12.2-16.2); Mean Corpuscular Hemoglobin 28.0 pg (28.0-32.0); Mean Corpuscular Volume 82.0 fL (80.0-100.0); Nucleated Red Blood Cells % 0.0 %
[2025-03-12 07:31] LABS: Albumin 3.9 g/dL (3.2-4.8); Alkaline Phosphatase 67 U/L (46-116); Calcium 10.1 mg/dL (8.7-10.4); Carbon Dioxide 24 mmol/L (20-31)
[2025-03-12 07:32] LABS: Anion Gap 11 (5-15); BUN/Creatinine Ratio 13.4 (10.0-20.0); Potassium 4.3 mmol/L (3.5-5.1); Sodium 143 mmol/L (136-145)
[2025-03-12 07:33] LABS: Total Protein 7.0 g/dL (5.7-8.2)
[2025-03-12 07:34] LABS: Alanine Aminotransferase < 9 U/L (7-40); Bilirubin, Total 0.3 mg/dL (0.2-1.0); Blood Urea Nitrogen 35 mg/dL (9-23); Chloride 108 mmol/L (98-107); Glucose 194 mg/dL (74-106)
[2025-03-12] MEDS ORDERED: PATIENTS OWN MEDICATION (Nifedipine (Nifedipine Er) 60 MG) PO SCH (10:00)
[2025-03-12] MEDS: DOCUSATE SOD 100 MG CAP PO PRN (10:47)
[2025-03-12] MEDS ORDERED: NIFE90TA75 PO (13:15)
--- NOTE | 2025-03-12 13:22 | DVHDS2 ---
Discharge Summary Date of Admission Mar 11, 2025 at 08:05 Date of Discharge: Mar 12, 2025 Admitting Diagnosis Acute on chronic renal failure Labs/Diagnostic Data: Laboratory Results Test 03/12/25 11:41 03/12/25 06:03 03/11/25 11:16 03/10/25 21:16 POC Glucose 92 mg/dl (70-106) White Blood Count 6.0 10^3/uL (4.4-10.8) Red Blood Count 3.39 10^6/uL (4.0-5.20) Hemoglobin 9.5 g/dL (12.2-16.2) Hematocrit 27.8 % (36.0-46.0) Mean Corpuscular Volume 82.0 fL (80.0-100.0) Mean Corpuscular Hemoglobin 28.0 pg (28.0-32.0) Mean Corpuscular Hemoglobin Concent 34.2 g/dL (32.0-36.0) Red Cell Distribution Width 15.2 % (11.8-14.3) Platelet Count 274 10^3/uL (140-450) Mean Platelet Volume 9.1 fL (6.9-10.8) Neutrophils (%) (Auto) 69.9 % (37.0-80.0) Lymphocytes (%) (Auto) 22.1 % (10.0-50.0) Monocytes (%) (Auto) 5.6 % (0.0-12.0) Eosinophils (%) (Auto) 1.9 % (0.0-7.0) Basophils (%) (Auto) 0.5 % (0.0-2.0) Neutrophils # (Auto) 4.2 10 ^3/uL (1.6-8.6) Lymphocytes # (Auto) 1.3 10 ^3/uL (0.4-5.4) Monocytes # (Auto) 0.3 10 ^3/uL (0-1.3) Eosinophils # (Auto) 0.1 10 ^3/uL (0-0.8) Basophils # (Auto) 0 10 ^3/uL (0-0.2) Nucleated Red Blood Cells 0.0 % Sodium Level 143 mmol/L (136-145) Potassium Level 4.3 mmol/L (3.5-5.1) Chloride Level 108 mmol/L (98-107) Carbon Dioxide Level 24 mmol/L (20-31) Anion Gap 11 (5-15) Blood Urea Nitrogen 35 mg/dL (9-23) Creatinine 2.61 mg/dL (0.550-1.02) Glomerular Filtration Rate Calc 20 mL/min (>90) BUN/Creatinine Ratio 13.4 (10.0-20.0) Serum Glucose 194 mg/dL (74-106) Calcium Level 10.1 mg/dL (8.7-10.4) Total Bilirubin 0.3 mg/dL (0.2-1.0) Aspartate Amino Transferase (AST) 8 U/L (13-40) Alanine Aminotransferase (ALT) < 9 U/L (7-40) Alkaline Phosphatase 67 U/L (46-116) Total Protein 7.0 g/dL (5.7-8.2) Albumin 3.9 g/dL (3.2-4.8) Hemoglobin A1c 7.7 % A1C (<5.7) Magnesium Level 2.3 mg/dL (1.6-2.6) Troponin I High Sensitivity 4 ng/L (</=34) Other Laboratory Tests 03/12/25 06:03 Brief Hx & Hospital Course: History of Present Illness Gretchen Pace is a 59-year-old female with past medical history of CVA with left sided weakness, diabetes, hypertension, and hyperlipidemia, who came to the hospital due to abnormal labs. Patient states she was recently sent to see a hairspring staker due to new diagnosis of kidney disease. She had labs drawn last week and was called and told to go to the ER due to elevated KCL levels and acute kidney disease. Patient is not able to remember the name of hairspring staker she was sent to. Course of hospitalization: Nephrology consultation was obtained. Patient was found to be severely hypertensive with systolic blood pressure in the 200s. New antihypertensive regimen was placed. Patient's blood pressure is now controlled. Recommendations by Nephrology was reviewed. Patient's potassium level now noted to be 4.3. Patient's baseline BUN and creatinine noted with current level was at baseline. Patient will be discharged home with home health services for physical therapy as requested by family given her history of stroke in severe weakness noted while in the hospital. She will follow up with her PCP, continue current anti hypertensive regimen with nifedipine and hydralazine. She is instructed to stop taking her current GLP 1 as well as antihypertensives. She will follow up with the PCP as well as Nephrology as the patient. Physical examination General: Alert and Oriented x3. No acute distress. Well-nourished. Eyes: EOMI. Anicteric. HENT: Moist mucous membranes. Lungs: Clear to auscultation bilaterally. No accessory muscle use. Cardiovascular: Regular rate and rhythm. No murmur. No JVD. Abdomen: Soft, non-tender and non-distended. No palpable masses. Extremities: No edema. Non-tender. Skin: No rashes or lesions. Warm. Neurologic: No focal neurological deficits. CN II-XII grossly intact, but not individually tested. Psychiatric: Cooperative. Appropriate mood and affect. Total time spent with patient discussing and formulating plan of care: 35 minutes. This medical document was created using an electronic medical record system with farmhopping dictation system. Although this document has been carefully reviewed, there may still be some phonetic and typographical errors. These areas are purely typographical due to imperfections of the software programs, and do not reflect any compromise in the patient's medical care. Condition at Discharge: Fair Final Diagnosis/Problems List -hypertensive crisis -hyperkalemia -chronic kidney disease stage IIIB/four -diabetes mellitus Discharge Disposition: Home with Health Services Discharge Instruct/Medications Diet: Regular Activity: No Restrictions, As Tolerated Follow Up/Referral: Follow up with PCP, Dr. Stephenie Riggins in 1-2 weeks Medications: Stop All previous antihypertensives including Jardiance Nifedipine ER 90 mg p.o. daily Hydralazine 25 mg p.o. b.i.d. Continue all other home medications Scheduled Aspirin (Aspirin), 1 TAB PO DAILY, (Reported) Atorvastatin Calcium (Atorvastatin Calcium), 1 TAB PO DAILY, (Reported) Clopidogrel Bisulfate (Clopidogrel), 1 TAB PO DAILY, (Reported) Diltiazem Hcl (Diltiazem Hcl Er), 1 CAP PO DAILY, (Reported) Empagliflozin (Jardiance), 1 TAB PO DAILY, (Reported) Gabapentin (Gabapentin), 1 CAP PO TID, (Reported) Hctz (Hydrochlorothiazide), 1 TAB PO DAILY, (Reported) Nifedipine (Nifedipine Er), 60 MG PO DAILY, (Reported) Nifedipine (Nifedipine Er), 1 TAB PO DAILY Pantoprazole Sodium Sesquihydr (Protonix), 40 MG PO BID Sitagliptin Phosphate (Januvia), 1 TAB PO DAILY, (Reported) Sucralfate (Carafate Susp), 1 GM GT QID@0600,1130,1700,2200 Discontinued Medications Amlodipine Besylate (Norvasc Tablet), 10 MG PO DAILY Atorvastatin Calcium (Atorvastatin Calcium), 1 TAB PO DAILY, (Reported) Levofloxacin Hemihydrate (Levaquin 500 Mg), 1 TAB PO DAILY Metformin Hydrochloride (Metformin Hcl), 1,000 MG PO TID, (Reported) Metoprolol Tartrate (Lopressor), 25 MG PO BID 36 Discharge Statement: "Patient was advised to return to the ER or call 911 if any headaches, dizziness, shortness of breath, chest pain, abdominal pain, bleeding, fevers, or worsening of medical condition. Patient was counseled about treatment plan, medications, possible side effects, patientverbalized understanding. All questions were answered to the best of my ability. This discharge took greater then 30 minutes in planning, reviewing documentation, counseling the patient, and discussing with other team members." ASSESSMENT ASSESSMENT Assessment Hyperkalemia Date of Service: Mar 12, 2025 Billing Provider: SAMMY MACDONALD NP Common Visit Codes: 90916-OXR/OBS DISCH DAY >30min SAMMY MACDONALD NP Mar 12, 2025 13:22
--- NOTE | 2025-03-12 19:31 | DVHPN2 ---
Progress Note Date Seen: Mar 12, 2025 Medical Necessity Reason Pt with a Central, PICC or Fol: No Subjective Patient reports: Other Review of Systems: MSK:Abnormal Objective vital signs Vital Sign Date Time Temp Pulse Resp B/P (MAP) Pulse Ox O2 Delivery O2 Flow Rate FiO2 03/12/25 18:10 127/57 03/12/25 16:58 98.4 77 18 98 98.4 03/12/25 07:55 Room Air* 0 21 Total Intake and Output 03/11/25 03/11/25 03/12/25 14:59 22:59 06:59 Intake Total 0 ml 100 ml Balance 0 ml 100 ml medications Current Medications Medications Dose Ordered Sig/Clem Route Start Time Stop Time Status Last Admin Dose Admin Acetaminophen/ Hydrocodone Bitart 1 tab Q4HP PRN PO 03/11/25 08:15 Ondansetron HCl 4 mg Q4HP PRN IV 03/11/25 08:15 Docusate Sodium 100 mg BIDPRN PRN PO 03/11/25 08:15 03/12/25 10:47 100 MG Acetaminophen 650 mg Q6HP PRN PO 03/11/25 08:15 Diagnostic Test (Pha) 1 strip ACHS 03/11/25 11:30 03/12/25 17:00 1 STRIP Insulin Human Regular HS SC 03/11/25 22:00 Insulin Human Regular AC SC 03/11/25 11:30 03/12/25 18:16 2 UNITS Dextrose 50 ml UD PRN IV 03/11/25 08:15 Atorvastatin Calcium 20 mg DAILY PO 03/11/25 10:00 03/12/25 10:46 20 MG Clopidogrel Bisulfate 75 mg DAILY PO 03/11/25 10:00 03/12/25 10:45 75 MG Gabapentin 100 mg TID PO 03/11/25 14:00 UNV Patient Own Medication 1 tab DAILY PO 03/11/25 10:00 UNV Gabapentin 300 mg DAILY PO 03/11/25 10:00 03/12/25 10:46 300 MG Aspirin 81 mg DAILY PO 03/11/25 10:00 03/12/25 10:49 81 MG Patient Own Medication 60 mg DAILY PO 03/12/25 10:00 UNV Patient Own Medication 1 tab DAILY PO 03/12/25 10:00 Nifedipine 90 mg DAILY PO 03/12/25 10:00 03/12/25 10:48 90 MG Hydralazine HCl 10 mg Q6HP PRN IV 03/11/25 15:45 03/11/25 15:57 10 MG Clonidine HCl 0.1 mg Q4HP PRN PO 03/11/25 15:45 03/11/25 18:27 0.1 MG Hydralazine HCl 25 mg Q6HR PO 03/11/25 20:45 03/12/25 18:10 25 MG Examination: GENERAL:Normal, HEENT:Abnormal, MSK:Normal, NEURO:Normal laboratory and microbiology Laboratory Tests 03/12/25 06:03 Test 03/12/25 06:03 Range/Units Serum Glucose 194 H 74-106 mg/dL Problem List/Assessment/Plan Problem List/Assessment/Plan Acute kidney injury on Chronic kidney disease IIIb/4--hemodynamic etiology Uncontrolled hypertension Diabetes/underlying diabetic nephropathy Obesity Hyperkalemia Recommendations Kidney function slightly better Hold thiazide diuretic and SGLT2 inhibitor until renal function plateaus Blood pressure meds adjusted Kidney ultrasound noted Low-potassium diet Plan discussed with: Spouse, Other My Orders My Orders Orders - PETER CASILLAS MD Procedure Category Date Status Time Urinalysis LAB 03/11/25 Logged 20:43 Urine Protein LAB 03/11/25 Logged 20:43 Urine Creatinine LAB 03/11/25 Logged 20:43 Urine Sodium LAB 03/11/25 Logged 20:43 Hydralazine Hcl PHA 03/11/25 In Process Tablet (Apresoline 20:45 PETER CASILLAS MD Mar 12, 2025 19:31
[2025-03-12] MEDS: ACETAMINOPHEN 325 MG TAB PO PRN (21:14)
[2025-03-13 01:00] VITALS: BP 108/66; PULSE 66; RESP 16; TEMP 98.4; O2SAT 97
[2025-03-13 05:00] VITALS: BP 125/73; PULSE 69; RESP 16; TEMP 98; O2SAT 97
[2025-03-13 09:20] VITALS: BP 140/73; PULSE 66; RESP 18; TEMP 97.5; O2SAT 96
--- NOTE | 2025-03-13 10:09 | DVHPN2 ---
Progress Note Date Seen: Mar 13, 2025 Medical Necessity Reason Pt with a Central, PICC or Fol: No Subjective Patient reports: No new complaints Other Systems: Patient seen and examined by myself today in follow-up Objective vital signs Vital Sign Date Time Temp Pulse Resp B/P (MAP) Pulse Ox O2 Delivery O2 Flow Rate FiO2 03/13/25 09:20 97.5 66 18 140/73 (95) 96 97.5 03/12/25 20:00 Room Air* 0 21 Total Intake and Output 03/12/25 03/12/25 03/13/25 15:00 23:00 07:00 Intake Total 480 ml Balance 480 ml medications Current Medications Medications Dose Ordered Sig/Clem Route Start Time Stop Time Status Last Admin Dose Admin Acetaminophen/ Hydrocodone Bitart 1 tab Q4HP PRN PO 03/11/25 08:15 Ondansetron HCl 4 mg Q4HP PRN IV 03/11/25 08:15 Docusate Sodium 100 mg BIDPRN PRN PO 03/11/25 08:15 03/12/25 10:47 100 MG Acetaminophen 650 mg Q6HP PRN PO 03/11/25 08:15 03/12/25 21:14 650 MG Diagnostic Test (Pha) 1 strip ACHS 03/11/25 11:30 03/13/25 06:14 1 STRIP Insulin Human Regular HS SC 03/11/25 22:00 03/12/25 21:12 2 UNITS Insulin Human Regular AC SC 03/11/25 11:30 03/12/25 18:16 2 UNITS Dextrose 50 ml UD PRN IV 03/11/25 08:15 Atorvastatin Calcium 20 mg DAILY PO 03/11/25 10:00 03/12/25 10:46 20 MG Clopidogrel Bisulfate 75 mg DAILY PO 03/11/25 10:00 03/12/25 10:45 75 MG Gabapentin 100 mg TID PO 03/11/25 14:00 UNV Patient Own Medication 1 tab DAILY PO 03/11/25 10:00 UNV Gabapentin 300 mg DAILY PO 03/11/25 10:00 03/12/25 10:46 300 MG Aspirin 81 mg DAILY PO 03/11/25 10:00 03/12/25 10:49 81 MG Patient Own Medication 60 mg DAILY PO 03/12/25 10:00 UNV Patient Own Medication 1 tab DAILY PO 03/12/25 10:00 Nifedipine 90 mg DAILY PO 03/12/25 10:00 03/12/25 10:48 90 MG Hydralazine HCl 10 mg Q6HP PRN IV 03/11/25 15:45 03/11/25 15:57 10 MG Clonidine HCl 0.1 mg Q4HP PRN PO 03/11/25 15:45 03/11/25 18:27 0.1 MG Hydralazine HCl 25 mg Q6HR PO 03/11/25 20:45 03/13/25 06:14 25 MG Examination: LUNGS:Normal, CVS:Normal, MSK:Normal laboratory and microbiology Laboratory Tests 03/12/25 06:03 Test 03/12/25 06:03 Range/Units Serum Glucose 194 H 74-106 mg/dL Problem List/Assessment/Plan Problem List/Assessment/Plan Acute kidney injury on Chronic kidney disease IIIb/4--hemodynamic etiology Uncontrolled hypertension Diabetes/underlying diabetic nephropathy Obesity Hyperkalemia Anemia of chronic kidney disease Recommendations Kidney function slightly better No urine output charted Strict I&Os Check urinalysis urine lytes and protein excretion Hold thiazide diuretic and SGLT2 inhibitor until renal function plateaus Blood pressure meds adjusted Kidney ultrasound noted Renal diet We will continue to follow Plan discussed with: Patient ESPERANZA ALBERTO MD Mar 13, 2025 10:09
== END 2025-03-13 12:24 | disposition home health service (06) | DRG 199 ==
LOC: ER 20:19 → OVERFLOW 03-11 08:05 → EAST 03-11 13:59
PROVIDERS: ADMIT Nurse Practitioner Acute Care; ATTEND Nurse Practitioner Acute Care
DX: I16.9 Hypertensive crisis, unspecified (principal); N18.4 Chronic kidney disease, stage 4 (severe); D63.1 Anemia in chronic kidney disease; E87.5 Hyperkalemia; I69.354 Hemiplegia and hemiparesis following cerebral infarction affecting left non-dominant side; E11.22 Type 2 diabetes mellitus with diabetic chronic kidney disease; E66.9 Obesity, unspecified; E78.5 Hyperlipidemia, unspecified; H54.8 Legal blindness, as defined in USA; E11.40 Type 2 diabetes mellitus with diabetic neuropathy, unspecified; I12.9 Hypertensive chronic kidney disease with stage 1 through stage 4 chronic kidney disease, or unspecified chronic kidney disease; Z90.49 Acquired absence of other specified parts of digestive tract; Z83.3 Family history of diabetes mellitus; Z68.30 Body mass index [BMI] 30.0-30.9, adult; Z79.899 Other long term (current) drug therapy
CPT/HCPCS: 36415; 76775; 80048; 80053; 82962; 83036; 83735; 84484; 85025; 93005; 96374; 97110; 97116; 97163; 97530; G0378; J1815

== ENCOUNTER 2025-06-11 10:30 | Emergency (ER) | payer MEDICAID ==
[~2025-06-11] VITALS: Ht 144.8 cm; Wt 59.0 kg
[~2025-06-11 10:30] MED LIST changes: -AML5T PO; +ASPI81CH49 PO; -ATOR-47 PO; +ATOR20TA50 PO; +CLOP75TA70 PO; -DILT-29 PO; +HYDR25TA5 PO; -LEVO500T91 PO; -MET25T PO; -METF-371 PO; +NIFE90TA75 PO
[2025-06-11 10:32] VITALS: BP 122/67; RESP 16; TEMP 98.3; O2SAT 98
--- NOTE | 2025-06-11 11:03 | ED.PDOC ---
History of Present Illness HPI Comments 60F presents to the ER in a wheelchair being pushed by daughter and w/ prior MHx of DM, High Lipids, HTN, CVA(left sided deficits and happened 3 years ago) w/ prior MHx of Appendectomy, Hernia Repair and the c/c of Face Pain. Daughter reports on the pt having had left facial pain w/ tenderness for the past week. Pt did try over the counter meds with mild relief. Pt notes on having mild facial swelling. Denies any symptoms at this time. Patient denies any CP, SOB, dizziness, numbness, weakness, tingling, fever, chills, or recent fall. Chief Complaint: Face pain Time Seen by MD: 11:00 Primary Care Provider: MASSIMO Dumont Notes: Nurses Notes, Medications, Allergies Allergies: Coded Allergies: NO KNOWN ALLERGIES (Unverified , 07/03/16) Home Meds Active Scripts Nifedipine (Nifedipine Er) 90 Mg Tab, 1 TAB PO DAILY, #30 TAB 5 Refills Prov:SAMMY MACDONALD LEADERSHIP DEVELOPMENT MANAGER 03/12/25 Pantoprazole Sodium Sesquihydr (Protonix) 40 Mg Tab, 40 MG PO BID for 30 Days, #60 TAB 1 Refill Prov:NADEGE COLES RESIDENT 03/30/24 Sucralfate (CARAFATE SUSP) 1 Gm/10 Ml Ss, 1 GM GT QID@0600,1130,1700,2200 for 30 Days, #10 ML 2 Refills Prov:NADEGE COLES RESIDENT 03/30/24 Reported Medications Clopidogrel Bisulfate (CLOPIDOGREL) 75 Mg Tab, 1 TAB PO DAILY 03/11/25 Atorvastatin Calcium (ATORVASTATIN CALCIUM) 20 Mg Tab, 1 TAB PO DAILY 03/11/25 Hctz (Hydrochlorothiazide) 25 Mg Tab, 1 TAB PO DAILY 03/11/25 Aspirin (Aspirin) 81 Mg Chw, 1 TAB PO DAILY 03/11/25 Information Source: Patient, Relative (Child) Mode of Arrival: Wheelchair Severity: Moderate Timing: Days Duration: Since onset, Days Prehospital treatment: None Past Medical History PAST MEDICAL HISTORY: CVA (left sided deficits and CVA was 3 years ago), DM, High Lipids, HTN Surgical History: Appendectomy, Hernia Repair UPSCALE SECURITY OFFICER History: No Pertinent UPSCALE SECURITY OFFICER History Family History Family History: Reviewed,noncontributory to illness, Unknown Social History Smoker: Non-Smoker Alcohol: Occasionally Drugs: Denies Drug Use Lives In: Home Constitutional: denies: chills, diaphoresis, fatigue, fever, malaise, sweats, weakness, others EENTM: denies: blurred vision, double vision, ear bleeding, ear discharge, ear drainage, ear pain, ear ringing, eye pain, eye redness, hearing loss, mouth pain, mouth swelling, nasal discharge, nose bleeding, nose congestion, nose pain, photophobia, tearing, throat pain, throat swelling, voice changes, others Respiratory: denies: cough, hemoptysis, orthopnea, SOB at rest, shortness of breath, SOB with excertion, stridor, wheezing, others Cardiovascular: denies: chest pain, dizzy spells, diaphoresis, Dyspnea on exertion, edema, irregular heart beat, left arm pain, lightheadedness, palpitations, PND, syncope, others Gastrointestinal: denies: abdomen distended, abdominal pain, blood streaked bowels, constipated, diarrhea, dysphagia, difficulty swallowing, hematemesis, melena, nausea, poor appetite, poor fluid intake, rectal bleeding, rectal pain, vomiting, others Genitourinary: denies: abnormal vagina bleeding, burning, dyspareunia, dysuria, flank pain, frequency, hematuria, incontinence, pain, , vagina discharge, urgency, others Neurological: reports: others (left facial tenderness); denies: dizziness, fainting, headache, left sided numbness, left sided weakness, numbness, paresthesia, pre-existing deficit, right sided numbness, right sided weakness, seizure, speech problems, tingling, tremors, weakness Musculoskeletal: denies: back pain, gout, joint pain, joint swelling, muscle pain, muscle stiffness, neck pain, others Integumetry: denies: bruises, change in color, change in hair/nails, dryness, laceration, lesions, lumps, rash, wounds, others Allergic/Immunocompromised: denies: Difficulty Healing, Frequent Infections, Hives, Itching, others Hematologic/Lymphatic: denies: anemia, blood clots, easy bleeding, easy bruising, swollen glands, others Endocrine: denies: excessive hunger, excessive sweating, excessive thirst, excessive urination, flushing, intolerance to cold, intolerance to heat, unexplained weight gain, unexplained weight loss, others Psychiatric: denies: anxiety, bipolar disorder, depression, hopeless, panic disorder, schizophrenia, sleepless, suicidal, others All Other Systems: Reviewed and Negative Physical Exam Exam Comments prior Hx of left sided deficits S/P CVA 3 years ago, Left facial Tenderness and Bilateral ear is normal General Appearance: No Apparent Distress, Normal HEENT: Normal ENT Inspection, Pharynx Normal, TMs Normal Neck: Full Range of Motion, Non-Tender, Normal, Normal Inspection Respiratory: Chest Non-Tender, Lungs Clear, No Accessory Muscle Use, No Respiratory Distress, Normal Breath Sounds Cardiovascular: No Edema, No JVD, No Murmur, No Gallop, Normal Peripheral Pulses, Regular Rate/Rhythm Breast Exam: Deferred Gastrointestinal: No Organomegaly, Non Tender, No Pulsatile Mass, Normal Bowel Sounds, Soft Genitalia: Deferred Pelvic: Deferred Rectal: Deferred Extremities: No calf tenderness, Normal capillary refill, Normal inspection, Normal range of motion, Non-tender, No pedal edema Musculoskeletal : Apperance: Normal Neurologic: Alert, sap portal consultant II-XII nml as Tested, No Motor Deficits, Normal Affect, Normal Mood, No Sensory Deficits Cerebellar Function: Normal Reflexes: Normal Skin: Dry, Normal Color, Warm Lymphatic: No Adenopathy Was a procedure done? Was a procedure done?: No EKG EKG : Pulse Rate (adult): 84 [place]: Normal Cardiac Rhythm: NSR Block: None Hypertrophy: None ST: Normal Differential Dx Considerations may include: Dental caries, trigeminal neuralgia, otitis media X-Ray, Labs, Meds, VS Vital Signs Date Time Temp Pulse Resp B/P (MAP) Pulse Ox O2 Delivery O2 Flow Rate FiO2 06/11/25 11:04 84 06/11/25 10:41 84 06/11/25 10:32 98.3 83 16 122/67 98 98.3 Lab Test 06/11/25 10:50 Range/Units POC Glucose 151 H 70-106 mg/dl Current Medications Medications (Trade) Dose Ordered Sig/Clem Route Start Time Stop Time Status Last Admin Methylprednisolone Sodium Succinate (Solu Medrol) 125 mg ONCE ONCE IM 06/11/25 11:00 06/11/25 11:04 DC 06/11/25 11:43 Ketorolac Tromethamine (Toradol Injection) 30 mg ONCE ONCE IM 06/11/25 11:00 06/11/25 11:04 DC 06/11/25 11:43 X-Ray, Labs, Meds, VS Comment Imaging was reviewed by this provider, there is no obvious pathological or acute disease process. Pending radiology review Labs were reviewed by this provider, no abnormalities Vital signs reviewed by this provider, clinically stable Time of 1ST Reevaluation: 11:30 Reevaluation 1ST: Unchanged Patient Education/Counseling: Diagnosis, Treatment, Prognosis, Need For Follow Up (Follow up with PCP next available appointment. Return to emergency department if symptoms worsen.) Family Education/Counseling: Diagnosis, Treatment, Prognosis SEPSIS Sepsis Screen Date sepsis recognized/suspect: Jun 11, 2025 Time Sepsis recognized/suspect: 1031 Recent Procedure: No On Antibiotic Therapy: No Respiratory Rate >20: No Heart Rate >90: No Temp<36 C (96.8 F) or >38.3 C: No SBP <90 or MAP <65 mmHG: No New Acute Mental Status Change: No Is the patient on CPAP, BIPAP,: No Physician Orders Head Without Contrast (06/11/25 10:59) Electrocardigram (06/11/25 11:07) Vital Signs Date Time Temp Pulse Resp B/P (MAP) Pulse Ox O2 Delivery O2 Flow Rate FiO2 06/11/25 11:04 84 06/11/25 10:41 84 06/11/25 10:32 98.3 83 16 122/67 98 98.3 Medications Medications Dose Ordered Sig/Clem Route Start Time Stop Time Status Last Admin Dose Admin Ketorolac Tromethamine 30 mg ONCE ONCE IM 06/11/25 11:00 06/11/25 11:04 DC 06/11/25 11:43 Methylprednisolone Sodium Succinate 125 mg ONCE ONCE IM 06/11/25 11:00 06/11/25 11:04 DC 06/11/25 11:43 Departure 1 Departure Time of Disposition: 11:56 Impression: Primary Impression: Trigeminal neuralgia of left side of face Disposition: 01 HOME / SELF CARE / HOMELESS Condition: Fair e-Prescriptions Prednisone (Prednisone) 20 Mg Tab 20 MG PO DAILY for 7 Days, #7 MG Prov: HALIMA AMATO 06/11/25 Discharged With: Self Critical Care Note Critical Care Time?: No Stability Stability form required: No Heart Score Heart Score: Heart Score Response (Comments) Value History N/A 0 EKG N/A 0 Age N/A 0 Risk Factors N/A 0 Troponin N/A 0 Total 0 I personally scribed for HALIMA AMATO ([facility]) on 06/11/25 at 11:03. Electronically submitted by Carlo Goss ([facility]). I personally scribed for HALIMA AMATO ([facility]) on 06/11/25 at 11:04. Electronically submitted by Carlo Goss ([facility]). HALIMA AMATO Jun 11, 2025 11:03
[2025-06-11 11:04] VITALS: PULSE 84
[2025-06-11] MEDS: KETOROLAC TROMETH 30 MG/ML 1ML VIAL IM ONE (11:43)
[2025-06-11] MEDS: methylPREDNISolone SOD SUCC 125 MG/2 ML VL IM ONE (11:43)
--- NOTE | 2025-06-11 11:47 | DVH ---
EXAM: CT HEAD WITHOUT CONTRAST INDICATION: facial pain TECHNIQUE: CT of the head without intravenous contrast. Radiation Dose : 1. Head: CT Dose: CTDI volume is 54.0 mGy. Dose-length product is 1064.7 mGy*cm The dose indicators for CT are the volume Computed Tomography (CT) Dose Index (CTDIvol) and the Dose Length Product (DLP), and are measured in units of mGy and mGy-cm, respectively. These indicators are not patient dose, but values generated from the CT scanner acquisition factors. The report includes radiation exposure data for exposures received during this examination. COMPARISON: CT BRAIN on DOS: 11/13/24, CT HEAD WITHOUT CONTRAST on DOS: 06/07/23, HEAD WITHOUT CONTRAST on DOS: 10/22/20 FINDINGS: Motion artifact degrades fine detail. No acute territorial infarct, intracranial hemorrhage, or mass effect. There are global involutional changes with compensatory prominence of the ventricles and sulci. Patchy periventricular and subcortical white matter hypoattenuation is nonspecific but may be related to small vessel ischemic disease. Chronic deep cerebral lacunar infarcts. Chronic right occipital infarct. The orbits are normal. The paranasal sinuses and mastoid air cells are clear. The osseous structures are unremarkable. IMPRESSION: 1. No acute territorial infarct, intracranial hemorrhage, or mass effect. 2. Age-related involutional changes. Chronic ischemic changes as detailed. 3. If clinical symptoms persist, MRI may be beneficial in further evaluation. Radiation optimization: All CT scans at this facility use at least one of these dose optimization techniques: automated exposure control mA and/or kV adjustment per patient size (includes targeted exams where dose is matched to clinical indication) or iterative reconstruction.
[2025-06-11] MEDS ORDERED: PRED20TA2 PO (11:58)
--- NOTE | 2025-06-11 18:44 | ECG ---
[facility] Test Date: 2025-06-11 Test Time: 10:41:41 Pat Name: SAGE YIN Department: ER Room: Gender: F Senior Nuclear Medicine Technologist: CLIFFORD : 1965 Requested By: HLAIMA CALLEJAS* Order Number: [id number] Reading MD: Cy Jason Measurements Intervals [place] Rate: 84 P: 41 NE: 119 QRS: 53 QRSD: 81 T: -14 QT: 345 QTc: 408 Interpretive Statements Sinus rhythm Borderline short NE interval Borderline T abnormalities, diffuse leads Electronically Signed On 06-12-2025 17:25:19 PST by Cy Jason Please click the below link to view image of tracing.
== END 2025-06-11 12:26 | disposition home or self-care (01) ==
LOC: ER 10:30
DX: G50.0 Trigeminal neuralgia (principal); F10.90 Alcohol use, unspecified, uncomplicated; I10 Essential (primary) hypertension; E11.9 Type 2 diabetes mellitus without complications; E78.5 Hyperlipidemia, unspecified; Z79.899 Other long term (current) drug therapy; Z90.49 Acquired absence of other specified parts of digestive tract; Z79.82 Long term (current) use of aspirin; Z98.890 Other specified postprocedural states
CPT/HCPCS: 70450; 82947; 93005; 96372; 99285; J1885; J2919; 82962